=== PATIENT | female | born 1950 | race Caucasian/White ===

== ENCOUNTER → 2016-11-24 | Outpatient (CLI) | payer MEDICARE, BC ==
--- NOTE | 2016-11-29 12:37 | MM ---
Reason for exam: screening (asymptomatic). Last mammogram was performed 1 year and 2 months ago. History: Patient is postmenopausal and is nulliparous. Family history of breast cancer in aunt at age 70. Took estrogen for 6 years beginning at age 44. Took progesterone for 6 years beginning at age 44. Physical Findings: A clinical breast exam by your physician is recommended on an annual basis and results should be correlated with mammographic findings. MG 3D Screening Mammo W/Cad Bilateral CC and MLO view(s) were taken. Prior study comparison: September 21, 2015, bilateral MG 3d screening mammo w/cad. July 17, 2014, bilateral MG screening mammo w CAD. The breast tissue is heterogeneously dense. This may lower the sensitivity of mammography. No significant changes when compared with prior studies. ASSESSMENT: Negative, BI-RAD 1 RECOMMENDATION: Routine screening mammogram of both breasts in 1 year.
== END | disposition home or self-care (01) ==
LOC: RADMAMWWP 08:38
PROVIDERS: ATTEND Internal Medicine
DX: Z12.31 Encounter for screening mammogram for malignant neoplasm of breast (principal)
CPT/HCPCS: 77063; G0202

== ENCOUNTER 2017-12-20 07:33 | Day surgery (SDC) | payer MEDICARE, BC ==
[2017-12-13 12:42] VITALS: BMI 28.8
[~2017-12-20 07:33] MED LIST: CLINDAMYCIN 600 MG in DEXTROSE 5% IN WATER 50 ML IVPB ONE; DEXAMETHASONE SOD PHOSPHATE 10 MG/ML 1 ML VIAL IV ONE; DEXAMETHASONE SOD PHOSPHATE 4 MG/ML 1 ML VIAL IV ONE; ONDANSETRON 4 MG/2 ML VIAL IVP ONE
[2017-12-20] MEDS: OXYMETAZOLINE 0.05% NASL SPRAY 1 SPRAY BOTTLE NASAL ONE ×5 (07:45→08:05)
[2017-12-20] MEDS: LACTATED RINGERS 1,000 ML IV SCH ×2 (08:10→11:37)
[2017-12-20] MEDS ORDERED: FAMOTIDINE 20 MG/2 ML VIAL IVP ONE (08:11)
[2017-12-20] MEDS ORDERED: LIDOCAINE 1% 20 ML VIAL (10MG/ML) FOR IV START INTRADERMA ONE (08:11)
[2017-12-20] MEDS ORDERED: LIDOCAINE 1%-EPI 1:100,000 20 ML VIAL SUBMUCOSAL ONE ×2 (09:09→09:44)
[2017-12-20] MEDS ORDERED: FLUORESCEIN STRIPS 1 MG STRIP MISCELLANE ONE (09:11)
[2017-12-20] MEDS ORDERED: EPINEPHrine 1 MG/ML (MDV) 30 ML VIAL TOPICAL ONE ×3 (09:11)
[2017-12-20] MEDS ORDERED: SUCCINYLCHOLINE CHLORIDE VIAL 200 MG/10 ML VIAL IV ONE (09:13)
[2017-12-20] MEDS ORDERED: LIDOCAINE 1% INJ 10MG/ML (20 ML MDV) ONE (09:13)
[2017-12-20] MEDS ORDERED: PROPOFOL 10 MG/ML 20 ML VIAL IV ONE (09:13)
[2017-12-20] MEDS ORDERED: DEXAMETHASONE SOD PHOS (MDV) 100 MG/10 ML VIAL ONE (09:13)
[2017-12-20] MEDS ORDERED: fentaNYL (PF) 50 MCG/ML 2 ML AMP ONE (09:13)
[2017-12-20] MEDS ORDERED: MIDAZOLAM 2 MG/2 ML VIAL ONE (09:13)
[2017-12-20 10:35] VITALS: TEMP 97.2
--- NOTE | 2017-12-20 10:39 | P.OP ---
Date of Procedure: 12/20/17 Preoperative Diagnosis: Chronic pansinusitis with sinonasal polyposis Left upper eyelid milia Postoperative Diagnosis: Same Procedure(s) Performed: Bilateral functional endoscopic sinus surgery with polypectomy of all sinuses Incision and drainage of a left eyelid milia Anesthesia: ARAM Surgeon: James Yang Estimated Blood Loss (ml): 20 Pathology: other (Sinonasal) Condition: stable Disposition: PACU Indications for Procedure: Patient presented to the office today with long-standing severe sinonasal symptoms of nasal obstruction anosmia, facial pain and pressure, discolored drainage etc. has failed medical therapy. She was found to have large amount of polyps intranasally and had evidence of chronic pansinusitis on computed tomography scan. The patient also has a lesion of the upper eyelid on the left fistula to have removed. All risks, benefits, and alternative therapies were discussed. Consent was obtained and all questions were answered. Operative Findings: Patient had massive sinonasal polyposis throughout all sinuses with purulence seen. A small left upper eyelid milia was also noted Description of Procedure: This patient was taken to the operative room and placed in the supine position. A general inhalation anesthetic was administered to the patient by the department of anesthesia with a functioning IV line in place. The patient was monitored throughout the entire case by the department of anesthesia. The eyes were taped shut for protection. The patient was placed in a slight reverse Trendelenburg position. The patient had previously utilize Afrin nasal spray preoperatively. The nose was evaluated and the septum lateral nasal wall and inferior turbinates were injected with lidocaine 1% with epinephrine 1 100,000 bilaterally. Approximately 10 minutes were allowed wait for full vasoconstrictive effects to take place. We then entered the nose with a 0 and 30 Chambers moshe endoscope. Previous to this we did inject the lateral nasal wall and middle turbinate and uncinate process with lidocaine 1% with epinephrine 1 100,000. Approximately 10 minutes were allowed wait for full vasoconstrictive effects to take place. Intranasal polyps were noted. They were noted bilaterally. The intranasal polyps were removed with use of a microdebrider. With use of a microdebrider and a pediatric backbiter, we took down the uncinate process bilaterally. We then opened the maxillary sinuses bilaterally. We utilized a microdebrider for this and entered the maxillary sinuses and removed diseased tissue and polypoid tissue. This was done bilaterally. After the maxillary sinuses were opened and the diseased tissue and polyps were removed we entered the ethmoid bulla and with use of a microdebrider and up-biting boss and Blaconnieley, we remove the anterior septations and remove diseased tissue from the anterior ethmoids with direct visualization. We then followed the fovea frontalis through the basal lamella and into the posterior ethmoid air cells and did a total ethmoidectomy with removal of polypoid material. Once the ethmoids cells were all taken down we then entered the sphenoid sinus medially and inferiorly underneath the inferior attachment of the superior turbinate. The sphenoid sinus was opened entered and diseased tissue and polyps were removed bilaterally. This was done with a microdebrider and Blakesley. We then entered the frontal sinuses with a giraffe and up-biting Blaconnieley entered on the agar nasi cells. We open the frontal sinuses and removed sinus tissue and polypoid tissue that was diseased. We explored the frontal sinuses bilaterally. We utilized balloon technology for assistance in opening the nasal frontal duct. To summarize all sinuses were open all sinuses were explored and we remove diseased tissue and polyps from the sphenoid maxillary and frontal sinuses. Polyps were removed from the nose. Ethmoid sinuses were opened totally. Nasal pore was inserted and minimal bleeding was encountered. We reinspected the skull base there is no signs of any orbital penetration or signs of any intracranial penetration. The sugical site was reinspected after the nasal pore was placed and no bleeding was seen. Propel was placed bilaterally along with xerogel and Sarah. The patient had a small mya-on the left upper eyelid and a 18-gauge needle was used to perform an incision and drainage and removal of the material of the left milia.
[2017-12-20] MEDS ORDERED: LABETALOL 5 MG/ML VIAL MDV IV ONE (10:52)
[2017-12-20] MEDS: HYDROmorphone 0.5 MG/0.5 ML SYRINGE IVP PRN ×2 (11:04→11:13)
[2017-12-20] MEDS ORDERED: LABETALOL 5 MG/ML VIAL MDV IVP ONE (11:16)
[2017-12-20] MEDS ORDERED: ENALAPRILAT 1.25 MG/ML 1 ML VIAL IVP ONE (12:30)
[2017-12-20] MEDS ORDERED: HYDROcodone/APAP 5-325MG 1 EACH TAB PO ONE (13:02)
[2017-12-20] MEDS ORDERED: hydrALAZINE HCL 20 MG/ML 1 ML VIAL IVP ONE (14:00)
[2017-12-20 14:05] VITALS: RESP 16
[2017-12-20 14:43] VITALS: BP 161/89; PULSE 93
== END 2017-12-20 15:15 | disposition home or self-care (01) ==
LOC: OR 07:33
PROVIDERS: ATTEND Otolaryngology
DX: J32.4 Chronic pansinusitis (principal); J33.9 Nasal polyp, unspecified; L72.0 Epidermal cyst; I10 Essential (primary) hypertension; E78.00 Pure hypercholesterolemia, unspecified; F17.210 Nicotine dependence, cigarettes, uncomplicated; R01.1 Cardiac murmur, unspecified; J45.909 Unspecified asthma, uncomplicated; Z79.2 Long term (current) use of antibiotics; Z79.891 Long term (current) use of opiate analgesic; Z79.51 Long term (current) use of inhaled steroids; Z79.899 Other long term (current) drug therapy; Z88.0 Allergy status to penicillin; Z91.09 Other allergy status, other than to drugs and biological substances
CPT/HCPCS: 88305; 31267; 31259; 31253; 67700; C2625; C1726; J0171; J2250; J0330; J0360; J1100 ×2; J2405; J2001; J3010; J2704; J1170

== ENCOUNTER → 2018-01-10 | Outpatient (CLI) | payer MEDICARE, BC | END | disposition home or self-care (01) | LOC: LABWHC1 07:01 | PROVIDERS: ATTEND Otolaryngology | DX: J30.89 Other allergic rhinitis (principal); E11.9 Type 2 diabetes mellitus without complications; I10 Essential (primary) hypertension; I97.131 Postprocedural heart failure following other surgery | CPT/HCPCS: 36415 ==

== ENCOUNTER → 2018-01-31 | Outpatient (CLI) | payer MEDICARE, BC ==
--- NOTE | 2018-01-31 08:16 | US ---
EXAMINATION TYPE: US duplex aorta DATE OF EXAM: 01/31/2018 COMPARISON: NONE CLINICAL HISTORY: I71.4 Abdominal aortic aneurysm, without rupture. Patient had [facility] Screening EXAM MEASUREMENTS: Abdominal Aorta: ap x transverse Proximal: 1.9 x 1.5 cm Mid: 1.4 x 1.5 cm Distal: 2.8 x 3.2 cm Bifurcation: right 1.5 cm trans. Left 1.7 cm trans IMPRESSION: Infrarenal abdominal aortic fusiform prominence extending to the bifurcation. This has so me iliac artery involvement. Greatest AP diameter of the distal abdominal aorta is 2.8 cm.
== END | disposition home or self-care (01) ==
LOC: RADUSWWP 07:31
PROVIDERS: ATTEND Internal Medicine
DX: I71.4 Abdominal aortic aneurysm, without rupture (principal)
CPT/HCPCS: 93979

== ENCOUNTER → 2018-02-12 | Outpatient (CLI) | payer MEDICARE, BC ==
[2018-02-12 08:10] VITALS: BP 166/92; PULSE 84; TEMP 98.3; BMI 29.0
--- NOTE | 2018-02-12 09:06 | P.HPOB ---
History of Present Illness H&P Date: 02/12/18 Chief Complaint: The patient is here for her routine gynecologic exam. This is a 67-year-old G0 with an LMP of 1996. The patient states she has noticed slight vaginal itching and soreness on the left side since earlier in the summer. She denies any postmenopausal bleeding, discharge or odor. The symptoms are near the vaginal opening. She denies inserting anything into the vagina and states it was not associated with any type of sexual activity. She is otherwise without gynecologic complaints. Review of Systems Weight has been stable over the last 3 years. She denies respiratory, cardiac and G.I. problems. She denies maltreatment or problems with falling. : she denies any significant problems with urinary leakage, but occasionally needs to get to the bathroom right away. Past Medical History Past Medical History: Atrial Fibrillation, Asthma, COPD, Hyperlipidemia, Hypertension, Skin Disorder Additional Past Medical History / Comment(s): Heart murmur. AAA. LT UPPER EYELID MILIA. RECURRENT SINUS POLYPS. ENVIRONMENTAL ALLERGIES. Osteopenia. 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 History of Any Multi-Drug Resistant Organisms: None Reported Past Surgical History: Appendectomy, Ear Surgery Additional Past Surgical History / Comment(s): Nasal polyps x 4. BMT. Salpingectomy (one), Past Anesthesia/Blood Transfusion Reactions: Postoperative Nausea & Vomiting ( PONV) Additional Past Anesthesia/Blood Transfusion Reaction / Comment(s): "FELL ILL FOR 1 WK" X1 OR. Past Psychological History: No Psychological Hx Reported Smoking Status: Current every day smoker (Less than one pack per day) Past Alcohol Use History: Daily (2-3 per day) Additional Past Alcohol Use History / Comment(s): SMOKING SINCE 1970, 1 PPD. FEW BEERS DAILY Past Drug Use History: Marijuana (Many years ago. She denies any current use.) - Past Family History Mother Family Medical History: Cancer (Widespread with uncertain primary.) Additional Family Medical History / Comment(s): Maternal aunts x2 had breast cancer Father Family Medical History: Myocardial Infarction (ME) Medications and Allergies Home Medications Medication Instructions Recorded Confirmed Type Atorvastatin [Lipitor] 20 mg PO HS 06/30/14 02/12/18 History Benazepril [Lotensin] 20 mg PO DAILY 06/30/14 02/12/18 History Fluticasone/Salmeterol [Advair 1 inhalation PO BID 06/30/14 02/12/18 History 100-50 Diskus] Apixaban [Eliquis] 5 mg PO BID 12/13/17 02/12/18 History Calcium Carbonate/Vitamin D3 1 each PO DAILY 12/13/17 02/12/18 History [Calcium 600-Vit D3 400 Tablet] Cetirizine HCl [Zyrtec] 10 mg PO DAILY 12/13/17 02/12/18 History Cholecalciferol (Vitamin D3) 2,000 unit PO DAILY 12/13/17 02/12/18 History [Vitamin D3] Fish Oil/Dha/Epa [Fish Oil 1,200 1 each PO DAILY 12/13/17 02/12/18 History mg Fish Oil] Fluticasone Propionate 1 spray EA NOSTRIL DAILY 12/13/17 02/12/18 History Metoprolol Succinate (ER) [Toprol 25 mg PO DAILY 12/13/17 02/12/18 History Xl] Multivit-Min/FA/Lycopen/Lutein 1 each PO DAILY 12/13/17 02/12/18 History [Centrum Silver Tablet] Triamterene/Hydrochlorothiazid 1 each PO DAILY 12/13/17 02/12/18 History [Triamterene-Hctz 37.5-25 mg Tb] Levofloxacin [Levaquin] 500 mg PO DAILY #10 tab 12/20/17 02/12/18 Rx Allergies Allergy/AdvReac Type Severity Reaction Status Date / Time amoxicillin [From Augmentin] Allergy Nausea & Verified 02/12/18 08:08 Vomiting & Diarrhea clavulanic acid Allergy Nausea & Verified 02/12/18 08:08 [From Augmentin] Vomiting & Diarrhea Exam Vital Signs Temp Pulse BP 02/12/18 08:08 98.3 F 84 166/92 Intake and Output 02/11/18 02/12/18 02/12/18 22:59 06:59 14:59 Other: Weight 72.121 kg Height 5'2", weight 159 pounds, BMI 29.1. This is a well-developed well-nourished white female who is alert and oriented times 3 in no acute distress. HEENT: Within normal limits. NECK: Supple without mass or thyromegaly. CHEST AND LUNGS: Clear to auscultation. HEART: Regular rate and rhythm. BREASTS: Are without mass or discharge. AXILLARY EXAM: Negative for adenopathy. BACK: Negative for CVA tenderness. ABDOMEN: Soft, nontender, without palpable masses. PELVIC EXAM: Normal external genitalia with mild atrophy. Cervix appears normal. The vaginal mucosa shows mild atrophy and a raised lesion just inside of the introitus measuring 2 x 2.5 cm. The mucosa of the lesion is a slightly darker pink compared to the inner mucosa. There are no ulcerations within the lesion. There is minimal leukoplakia noted near the medial aspect of the lesion. The border is slightly irregular. There is no unusual discharge. There is no evidence of prolapse. The uterus is midposition, nongravid size and nontender. There are no palpable adnexal masses or tenderness. RECTAL EXAM: rectovaginal exam is negative for mass or tenderness and is negative for occult blood. EXTREMITIES: Nontender. IMPRESSION: 1. 67-year-old menopausal female with a left vaginal lesion just inside of the introitus measuring approximately 2 x 2.5 cm. This lesion somewhat suspicious. 2. History of osteopenia status post greater than 5 years use of Fosamax. This was discontinued approximately in 2009. PLAN: 1. Pap smear was performed. 2. Self breast awareness was discussed with the patient. 3. Screening mammogram is scheduled on 02/19/2018 per the patient. 4. The patient has been scheduled for a biopsy of the vaginal lesion. I have stressed the importance of doing the biopsy. 5. Osteoporosis prevention was discussed. She is scheduled for bone density screening on 02/19/2018. 6. I have recommended screening colonoscopy which she is refusing. She is interested in doing Cologuard screening. We have discussed how this is not a replacement for colonoscopy testing and that colonoscopy may be recommended if the cologuard testing is abnormal. If it is negative, it should be done every 3 years. A prescription was given to the patient for this. 7. We have discussed her blood pressure elevation. She will check home blood pressures on a regular basis and follow-up with Dr. Maynard for blood pressure elevations. 7. She will return in one year and PRN.
== END ==
LOC: WWCWWP 07:45
PROVIDERS: ATTEND Obstetrics & Gynecology
DX: Z53.9 Procedure and treatment not carried out, unspecified reason (principal)

== ENCOUNTER → 2018-02-19 | Outpatient (CLI) | payer MEDICARE, BC ==
--- NOTE | 2018-02-19 12:48 | BD ---
EXAMINATION TYPE: Axial Bone Density DATE OF EXAM: 02/19/2018 COMPARISON: NONE CLINICAL HISTORY: Postmenopausal female. Osteoporosis screening. Height: 5 FT 1 IN Weight: 156 FRAX RISK QUESTIONS: Family History (Parent hip fracture): YES Secondary Osteoporosis: Current Tobacco Use: YES RISK FACTORS HISTORY OF: Family History of Osteoporosis: YES Active: YES Postmenopausal woman: AGE 46 MEDICATIONS: Additional Medications: ADVAIR, ELEQUIS,BLOOD PRESSURE MEDS, CHOLESTEROL MEDS, H2O PILL, ALLERGY MED S, Additional History: EXAM MEASUREMENTS: Bone mineral densitometry was performed using the CSDN System. Bone mineral density as measured about the Lumbar spine is: ----- L1-L4(G/cm2): 1.060 T Score Values are as follows: ----- L2: -0.3 ----- L3: -1.5 ----- L4: -1.2 ----- L1-L4: -1.0 Bone mineral density has: INCREASED 5.5 % since study of: 2015 Bone mineral density about the R hip (g/cm2): 0.778 Bone mineral density about the L hip (g/cm2): 0.821 T Score values are as follows: -----R Neck: -1.9 -----L Neck: -1.6 -----R Total: -1.6 -----L Total: -0.6 Bone mineral density has: INCREASED 1.8 % since study of: 2015 IMPRESSION: Osteopenia (T Score between -2.5 and -1). There is slightly increased risk of fracture and the patient may be considered for treatment. Re-Screen 2-5 years. NOTE: T-SCORE=SD OF THE YOUNG ADULT MEAN.
--- NOTE | 2018-02-20 11:21 | MM ---
Reason for exam: screening (asymptomatic). Last mammogram was performed 1 year and 3 months ago. History: Patient is postmenopausal and is nulliparous. Family history of breast cancer in aunt at age 70. Took estrogen for 6 years beginning at age 44. Took progesterone for 6 years beginning at age 44. Physical Findings: A clinical breast exam by your physician is recommended on an annual basis and results should be correlated with mammographic findings. MG 3D Screening Mammo W/Cad Bilateral CC and MLO view(s) were taken. Prior study comparison: November 24, 2016, bilateral MG 3d screening mammo w/cad. September 21, 2015, bilateral MG 3d screening mammo w/cad. The breast tissue is heterogeneously dense. This may lower the sensitivity of mammography. There is chronic nodularity in the right breast. Dense tissues anteriorly on a background of scattered densities. No significant changes when compared with prior studies. ASSESSMENT: Negative, BI-RAD 1 RECOMMENDATION: Routine screening mammogram of both breasts in 1 year.
== END | disposition home or self-care (01) ==
LOC: RADMAMWWP 07:37
PROVIDERS: ATTEND Internal Medicine
DX: Z12.31 Encounter for screening mammogram for malignant neoplasm of breast (principal); M85.80 Other specified disorders of bone density and structure, unspecified site
CPT/HCPCS: 77063; 77067; 77080

== ENCOUNTER → 2018-02-27 | Day surgery (SDC) | payer MEDICARE, BC ==
--- NOTE | 2018-02-27 14:11 | P.PCN ---
Date of Procedure: 02/27/18 Preoperative Diagnosis: Suspicious vaginal mucosal lesion Postoperative Diagnosis: Same Procedure(s) Performed: Vaginal lesion biopsy x2 Anesthesia: local Surgeon: Karthik Murrieta Estimated Blood Loss (ml): 2 Pathology: other (2 vaginal lesion biopsies) Condition: stable Disposition: same day Indications for Procedure: This was a 67-year-old female who noticed some vaginal irritation and soreness just inside of the introitus for the past several months. She noticed that it was on the left side. A suspicious vaginal lesion was noted on her exam and she was scheduled for a biopsy. Operative Findings: There is in a regular vaginal mucosal lesion to the left side of the vagina near the introitus. The lesion is at the posterior aspect of the vaginal opening. The mucosa is raised and slightly darker pink than the surrounding mucosa. The lesion measures approximately 2.5 x 2.0 cm. There is a small amount of leukoplakia at the medial peripheral aspect of the lesion. Description of Procedure: The procedure was described to the patient. We also discussed possible risks and complications including infection and bleeding. The patient's questions were answered. The patient was placed in the lithotomy position. The lesion was visible by spreading the labia apart. Betadine solution was used to prep the lesion. 2 mL of 1% lidocaine was used for local anesthesia. Following determination of adequate anesthesia, a 4 mm punch biopsy instrument was used to obtain a specimen from the central part of the lesion. A 2nd biopsy was obtained with a cervical biopsy instrument in the area of the small leukoplakia at the medial aspect of the lesion. A silver nitrate stick was used on each of the biopsy sites to obtain hemostasis. Gauze was placed between the labia and the patient was given a pad to wear. the patient was instructed to change the gauze later today as needed. The patient was instructed to call she is having unusual pain , heavier bleeding, fever or problems. The patient tolerated the procedure well. The estimated blood loss for the procedure was 2 cc. There were no complications. To biopsy specimens were sent for pathological examination Preprocedure vital signs: blood pressure 152/72, pulse 100, temperature 98.0. Postprocedure vital signs: blood pressure 145/85, pulse 104.
== END ==
LOC: WWCWWP 02-20 11:52
PROVIDERS: ATTEND Obstetrics & Gynecology
DX: D07.2 Carcinoma in situ of vagina (principal)
CPT/HCPCS: 88305; 88342

== ENCOUNTER → 2018-02-28 | Outpatient (CLI) | payer MEDICARE, BC ==
[2018-02-28 11:51] VITALS: BP 160/70; PULSE 87; RESP 18; TEMP 96.6; BMI 29.8
--- NOTE | 2018-02-28 13:02 | P.PN ---
Progress Note - Text Progress Note Date: 02/28/18 The patient is status post vaginal biopsy x2 done yesterday for a suspicious vaginal lesion. The patient states she took ibuprofen yesterday when she meant to take Tylenol. About 3 hours later, she noticed some bleeding from the biopsy site. She called this morning because she continued to have bleeding. She did have some clots also noted. She was asked to be seen in the office. Physical exam: blood pressure 160/70, height 5'1", weight 160 pounds, long-term 96.4 part, pulse 87. This is a well-developed well-nourished white female who is alert and oriented times 3 in no acute distress. The patient was placed in the lithotomy position. There was blood in the genital region. Upon inspection of the biopsy sites, the more lateral biopsy site was bleeding from the lateral aspect of the site. This was a continuous bleed. Pressure was applied for 2 minutes and she continued to have a slow continuous bleed. The decision was made to place a stitch for hemostasis. The area was prepped with Betadine. 1.5 mL of 1% lidocaine was used for local anesthesia. Following determination of adequate anesthesia, a 3-0 vicryl suture was used to place a single figure of 8 stitch for hemostasis. Hemostasis was obtained. Suture ends were left at 2cm. The estimated blood loss was to 2 ml. The patient tolerated the procedure well. The patient was instructed to have very limited activity for the next 2 days and no strenuous or sexual activity until she is seen again. We have made an appointment for her to be seen on 03/12/2018. She was instructed to call she is having bleeding, fever, unusual pain, lightheadedness, or problems. 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 This finding was discussed with the patient. We discussed how further treatment is necessary. We also discussed how possible adjuvant therapy may be necessary if excision of the lesion revealed invasive cancer. I will consult with a gynecologic oncologist to determine the best approach for treatment. Post suture blood pressure was 152/69 and pulse was 86. The patient left in stable condition. I will call her with future plans for treatment of the carcinoma in situ. Total time spent with the patient 35 minutes.
--- NOTE | 2018-03-05 07:58 | P.PN ---
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 I have consulted by phone with 2 [employer] oncologists, Dr. Esdras Haney and Dr. Carole Amezcua. Both feel that wide local excision of the vaginal lesion is acceptable since the lesion is accessible and well demarcated. The goal will be to exercise the lesion with negative margins. I have discussed this with Dr. Martel who has agreed to see the patient for possible local excision of the lesion. She will be referred to Dr. Martel for this.
== END | disposition home or self-care (01) ==
LOC: WWCWWP 11:32
PROVIDERS: ATTEND Obstetrics & Gynecology
DX: Z53.9 Procedure and treatment not carried out, unspecified reason (principal)

== ENCOUNTER → 2018-03-07 | Outpatient (CLI) | payer MEDICARE, BC ==
[2018-03-07 15:36] LABS: Basophils # (A) 0.1 k/uL (0-0.2); Basophils % (A) 1 %; Eosinophils # (A) 0.1 k/uL (0-0.7); Eosinophils % (A) 1 %; HCT 37.6 % (34.0-46.0); HGB 12.3 gm/dL (11.4-16.0); Lymphocytes # (A) 2.3 k/uL (1.0-4.8); Lymphocytes % (A) 23 %; MCH 32.8 pg (25.0-35.0); MCHC 32.7 g/dL (31.0-37.0); MCV 100.2 fL (80.0-100.0); Mean Platelet Volume 6.4; Monocytes # (A) 0.6 k/uL (0-1.0); Monocytes % (A) 6 %; Neutrophils # (A) 6.8 k/uL (1.3-7.7); Neutrophils % (A) 68 %; Platelet Count 337 k/uL (150-450); RBC 3.75 m/uL (3.80-5.40); RDW 13.4 % (11.5-15.5)
== END ==
LOC: LABPAT 14:54
PROVIDERS: ATTEND Obstetrics & Gynecology
DX: Z01.812 Encounter for preprocedural laboratory examination (principal); N90.89 Other specified noninflammatory disorders of vulva and perineum; N89.8 Other specified noninflammatory disorders of vagina
CPT/HCPCS: 36415; 85025

== ENCOUNTER 2018-03-19 06:48 | Day surgery (SDC) | payer MEDICARE, BC ==
[2018-03-14 15:25] VITALS: BMI 30.2
[~2018-03-19 06:48] MED LIST changes: -CLINDAMYCIN 600 MG in DEXTROSE 5% IN WATER 50 ML IVPB ONE; -DEXAMETHASONE SOD PHOSPHATE 4 MG/ML 1 ML VIAL IV ONE; +HYDROmorphone 0.5 MG/0.5 ML SYRINGE IVP PRN; +LACTATED RINGERS 1,000 ML IV SCH; +LIDOCAINE 1% 20 ML VIAL (10MG/ML) FOR IV START INTRADERMA PRN; +MIDAZOLAM 2 MG/2 ML VIAL IV PRN; +Pre Op ABX Message 1 EACH MISC MISCELLANE ONE; +SCOPOLAMINE 1.5MG/72HR PATCH TRANSDERM ONE
[2018-03-19 07:44] LABS: Glucose,Whole Blood 128 mg/dL (75-99)
[2018-03-19] MEDS ORDERED: PROPOFOL 10 MG/ML 20 ML VIAL IV ONE (09:09)
[2018-03-19] MEDS ORDERED: MIDAZOLAM 2 MG/2 ML VIAL ONE (09:09)
[2018-03-19] MEDS ORDERED: fentaNYL (PF) 50 MCG/ML 2 ML AMP ONE (09:09)
[2018-03-19] MEDS ORDERED: LIDOCAINE 1% INJ 10MG/ML (20 ML MDV) ONE (09:09)
[2018-03-19] MEDS ORDERED: METOCLOPRAMIDE 5 MG/ML 2 ML VIAL IVP PRN (09:15)
[2018-03-19] MEDS ORDERED: Acetaminophen-Codeine 300-30mg TAB PO PRN ×2 (09:15)
[2018-03-19] MEDS ORDERED: LACTATED RINGERS 1,000 ML IV SCH (09:15)
[2018-03-19] MEDS ORDERED: ONDANSETRON 4 MG/2 ML VIAL IVP PRN (09:15)
[2018-03-19] MEDS ORDERED: SIMETHICONE 80 MG CHEWABLE PO PRN (09:15)
[2018-03-19] MEDS ORDERED: diphenhydrAMINE 25 MG CAP PO PRN (09:15)
[2018-03-19] MEDS ORDERED: IBUPROFEN 600 MG TAB PO PRN (09:15)
[2018-03-19] MEDS ORDERED: BUPIVACAINE (PF) 0.25% 30 ML VIAL SQ ONE ×2 (09:31)
--- NOTE | 2018-03-19 09:51 | P.OP ---
Date of Procedure: 03/19/18 Preoperative Diagnosis: #1. Vulvar carcinoma in situ Postoperative Diagnosis: Same Procedure(s) Performed: #1. Wide local excision of vulvar lesion Anesthesia: spinal Surgeon: Jared Martel Sales Account Specialist #1: Jeanie Weiss Estimated Blood Loss (ml): 10 IV fluids (ml): 400 Urine output (ml): 0 Pathology: other (Left vulvar perineal ellipse) Condition: stable Disposition: PACU Operative Findings: Preoperatively and intraoperatively, the patient was noted to have a well- circumscribed lesion just outside of the hymeneal ring on the left vulva near the perineal body which was excised entirely and sent to pathology for examination. No other lesions were noted. Description of Procedure: The patient was prepped and draped in usual fashion after spinal anesthesia was administered by the anesthesiologist. The lesion was identified and grasped from side to side with an Allis clamp. The margins of the ellipse were marked with a surgical marker. A scalpel was utilized to circumscribe the margins and remove the lesion to the underlying fascia. The base of the ellipse was cauterized for any significant ongoing bleeding. Once bleeding was adequate, the subcutaneous tissues were closed with a running locking stitch of 2-0 Vicryl from top to bottom. Any further bleeders near the skin edges were made hemostatic with the Bovie. The skin was reapproximated with a running subcuticular stitch of 4-0 Vicryl from superior to inferior margin. The entire ellipse was perhaps 4-5 cm in length by approximately 3 cm in width. Hemostasis appeared to be excellent. Bacitracin ointment was applied to the repair. Estimated blood loss for the case was 10 mL or less. There were no complications. All sponge, instrument, and needle counts were correct. The patient tolerated the procedure well and proceeded to the recovery room in stable condition.
[2018-03-19 09:57] VITALS: TEMP 97.4
[2018-03-19 10:51] VITALS: RESP 18
[2018-03-19 11:29] VITALS: BP 132/76; PULSE 103
== END 2018-03-19 11:58 | disposition home or self-care (01) ==
LOC: OR 06:48
PROVIDERS: ATTEND Obstetrics & Gynecology
DX: D07.1 Carcinoma in situ of vulva (principal); I10 Essential (primary) hypertension; E78.5 Hyperlipidemia, unspecified; J45.909 Unspecified asthma, uncomplicated; F17.210 Nicotine dependence, cigarettes, uncomplicated; Z80.3 Family history of malignant neoplasm of breast; R59.9 Enlarged lymph nodes, unspecified; M79.10 Myalgia, unspecified site; I48.1 Persistent atrial fibrillation; I35.0 Nonrheumatic aortic (valve) stenosis; I71.4 Abdominal aortic aneurysm, without rupture; J43.9 Emphysema, unspecified; R01.1 Cardiac murmur, unspecified; M85.80 Other specified disorders of bone density and structure, unspecified site; Z88.0 Allergy status to penicillin; Z79.01 Long term (current) use of anticoagulants; Z79.51 Long term (current) use of inhaled steroids; Z79.899 Other long term (current) drug therapy
CPT/HCPCS: 88305; 11626; J2250; J1100; J2405; J2001; J3010; J2704

== ENCOUNTER 2018-04-24 10:22 | Emergency (ER) | payer MEDICARE, BC ==
[2018-04-24] MEDS ORDERED: IPRATROPIUM-ALBUTEROL 3 ML NEB INHALATION STA (10:41)
[2018-04-24] MEDS ORDERED: SODIUM CHLORIDE 0.9% 1,000 ML IV STA ×2 (10:41→11:01)
--- NOTE | 2018-04-24 11:01 | ED ---
General Adult HPI - General Chief complaint: Recheck/Abnormal Lab/Rx Stated complaint: low bp Time Seen by Provider: 04/24/18 10:33 Source: patient, RN notes reviewed Mode of arrival: wheelchair Limitations: no limitations - History of Present Illness Initial comments: Is a 67-year-old female who was sent over from her doctor's office with complaints of just not feeling well. She states for the past 5 days she just is felt like crap she's had some nausea decreased oral intake she's had a nonproductive cough she thought because of a recent diagnosis of A. fib this was her reason for this. She denies any overt fevers chills or sweats. No overt dizziness or lightheadedness. No focal deficits. No dysuria hematuria. No rhinorrhea she states because of cough over has had a sore throat she does state that she normally is hypertensive she states her blood pressure is been lower. - Related Data Home Medications Medication Instructions Recorded Confirmed Atorvastatin [Lipitor] 20 mg PO HS 06/30/14 04/24/18 Benazepril [Lotensin] 20 mg PO DAILY 06/30/14 04/24/18 Fluticasone/Salmeterol [Advair 1 puff INHALATION RT-BID 06/30/14 04/24/18 100-50 Diskus] Apixaban [Eliquis] 5 mg PO BID 12/13/17 04/24/18 Cholecalciferol (Vitamin D3) 2,000 unit PO DAILY 12/13/17 04/24/18 [Vitamin D3] Fexofenadine HCl [Latonya Allergy] 180 mg PO DAILY 04/24/18 04/24/18 Metoprolol Succinate (ER) [Toprol 50 mg PO DAILY 04/24/18 04/24/18 Xl] Triamcinolone Acetonide [Nasacort] 1 spray EA NOSTRIL DAILY 04/24/18 04/24/18 Triamterene-Hctz 37.5-25Mg 1 cap PO DAILY 04/24/18 04/24/18 [Dyazide 37.5-25 Capsule] Allergies Allergy/AdvReac Type Severity Reaction Status Date / Time amoxicillin [From Augmentin] Allergy Nausea & Verified 04/24/18 10:43 Vomiting & Diarrhea clavulanic acid Allergy Nausea & Verified 04/24/18 10:43 [From Augmentin] Vomiting & Diarrhea Review of Systems ROS Statement: Those systems with pertinent positive or pertinent negative responses have been documented in the HPI. ROS Other: All systems not noted in ROS Statement are negative. Past Medical History Past Medical History: Atrial Fibrillation, Asthma, COPD, Hyperlipidemia, Hypertension Additional Past Medical History / Comment(s): Heart murmur. AAA. RECURRENT SINUS POLYPS. ENVIRONMENTAL ALLERGIES. History of Any Multi-Drug Resistant Organisms: None Reported Past Surgical History: Appendectomy, Ear Surgery Additional Past Surgical History / Comment(s): Nasal polyps x 3. BMT. Salpingectomy (one), Past Anesthesia/Blood Transfusion Reactions: Postoperative Nausea & Vomiting ( PONV) Additional Past Anesthesia/Blood Transfusion Reaction / Comment(s): "FELL ILL FOR 1 WK" X1 OR. Past Psychological History: No Psychological Hx Reported Smoking Status: Current every day smoker Past Alcohol Use History: None Reported Past Drug Use History: None Reported - Past Family History Father Family Medical History: Myocardial Infarction ([place]) Mother Family Medical History: Cancer Additional Family Medical History / Comment(s): Maternal aunts x2 had breast cancer General Exam - General Exam Comments Initial Comments: Is a well-developed well-nourished awake alert oriented 3 female Limitations: no limitations General appearance: alert, in no apparent distress Head exam: Present: atraumatic, normocephalic, normal inspection Eye exam: Present: normal appearance, PERRL, EOMI. Absent: scleral icterus, conjunctival injection, periorbital swelling ENT exam: Present: mucous membranes dry, normal external ear exam Neck exam: Present: normal inspection, full ROM. Absent: tenderness, meningismus, lymphadenopathy Respiratory exam: Present: wheezes, decreased breath sounds. Absent: respiratory distress, rales, rhonchi, stridor Cardiovascular Exam: Present: tachycardia, irregular rhythm. Absent: systolic murmur, diastolic murmur, rubs, gallop, clicks GI/Abdominal exam: Present: soft, normal bowel sounds. Absent: distended, tenderness, guarding, rebound, rigid Extremities exam: Present: normal inspection, full ROM, normal capillary refill. Absent: tenderness, pedal edema, joint swelling, calf tenderness Back exam: Present: normal inspection Neurological exam: Present: alert, oriented X3, CN II-XII intact Psychiatric exam: Present: normal affect, normal mood Skin exam: Present: warm, dry, intact, normal color. Absent: rash Course Vital Signs 04/24/18 04/24/18 04/24/18 10:23 11:57 12:07 Temperature 98.7 F Pulse Rate 103 H 100 88 Respiratory 16 Rate Blood Pressure 89/57 O2 Sat by Pulse 95 Oximetry EKG Findings - EKG Results: EKG: interpreted by ALINE (Atrial flutter rate was 88 QRS 102 QT since QTC 362/ 438 no acute changes noted) Medical Decision Making - Medical Decision Making I did reevaluate patient several occasions she still improved with respect to her breathing additionally she did definite evidence of dehydration and renal insufficiency she did receive IV fluids her blood pressure is improved. Thus the case with Dr. Maynard patient be discharged with modification of her medications she will be stopping her Dyazide and decreasing her RIVERA inhibitor to 10 mg a from 20 mg a day. She is also follow-up with Dr. Maynard next 1-2 days. Some increase her oral fluids. - Lab Data Result diagrams: 04/24/18 10:53 04/24/18 10:53 Lab Results 04/24/18 04/24/18 04/24/18 Range/Units 10:53 10:53 10:53 WBC 6.3 (3.8-10.6) k/uL RBC 4.41 (3.80-5.40) m/uL Hgb 13.8 (11.4-16.0) gm/dL Hct 42.0 (34.0-46.0) % MCV 95.3 (80.0-100.0) fL MCH 31.4 (25.0-35.0) pg MCHC 32.9 (31.0-37.0) g/dL RDW 13.3 (11.5-15.5) % Plt Count 221 (150-450) k/uL Neutrophils % 71 % Lymphocytes % 18 % Monocytes % 5 % Eosinophils % 1 % Basophils % 1 % Neutrophils # 4.4 (1.3-7.7) k/uL Lymphocytes # 1.1 (1.0-4.8) k/uL Monocytes # 0.3 (0-1.0) k/uL Eosinophils # 0.1 (0-0.7) k/uL Basophils # 0.1 (0-0.2) k/uL PT (9.0-12.0) sec INR (<1.2) APTT (22.0-30.0) sec Sodium 135 L (137-145) mmol/L Potassium 3.3 L (3.5-5.1) mmol/L Chloride 97 L (98-107) mmol/L Carbon Dioxide 25 (22-30) mmol/L Anion Gap 13 mmol/L BUN 28 H (7-17) mg/dL Creatinine 1.55 H (0.52-1.04) mg/dL Est GFR (CKD-EPI)AfAm 40 (>60 ml/min/1.73 sqM) Est GFR (CKD-EPI)NonAf 34 (>60 ml/min/1.73 sqM) Glucose 136 H (74-99) mg/dL Calcium 8.8 (8.4-10.2) mg/dL Magnesium 2.1 (1.6-2.3) mg/dL Total Bilirubin 0.6 (0.2-1.3) mg/dL AST 44 H (14-36) U/L ALT 43 (9-52) U/L Alkaline Phosphatase 69 (38-126) U/L Total Creatine Kinase 96 (30-135) U/L CK-MB (CK-2) 0.8 (0.0-2.4) ng/mL CK-MB (CK-2) Rel Index 0.8 Troponin I 0.013 (0.000-0.034) ng/mL NT-Pro-B Natriuret Pep pg/mL Total Protein 7.1 (6.3-8.2) g/dL Albumin 4.1 (3.5-5.0) g/dL 04/24/18 04/24/18 Range/Units 10:53 10:53 WBC (3.8-10.6) k/uL RBC (3.80-5.40) m/uL Hgb (11.4-16.0) gm/dL Hct (34.0-46.0) % MCV (80.0-100.0) fL MCH (25.0-35.0) pg MCHC (31.0-37.0) g/dL RDW (11.5-15.5) % Plt Count (150-450) k/uL Neutrophils % % Lymphocytes % % Monocytes % % Eosinophils % % Basophils % % Neutrophils # (1.3-7.7) k/uL Lymphocytes # (1.0-4.8) k/uL Monocytes # (0-1.0) k/uL Eosinophils # (0-0.7) k/uL Basophils # (0-0.2) k/uL PT 10.5 (9.0-12.0) sec INR 1.0 (<1.2) APTT 28.3 (22.0-30.0) sec Sodium (137-145) mmol/L Potassium (3.5-5.1) mmol/L Chloride (98-107) mmol/L Carbon Dioxide (22-30) mmol/L Anion Gap mmol/L BUN (7-17) mg/dL Creatinine (0.52-1.04) mg/dL Est GFR (CKD-EPI)AfAm (>60 ml/min/1.73 sqM) Est GFR (CKD-EPI)NonAf (>60 ml/min/1.73 sqM) Glucose (74-99) mg/dL Calcium (8.4-10.2) mg/dL Magnesium (1.6-2.3) mg/dL Total Bilirubin (0.2-1.3) mg/dL AST (14-36) U/L ALT (9-52) U/L Alkaline Phosphatase (38-126) U/L Total Creatine Kinase (30-135) U/L CK-MB (CK-2) (0.0-2.4) ng/mL CK-MB (CK-2) Rel Index Troponin I (0.000-0.034) ng/mL NT-Pro-B Natriuret Pep 474 pg/mL Total Protein (6.3-8.2) g/dL Albumin (3.5-5.0) g/dL - Radiology Data Radiology results: report reviewed (I did review the imaging and report no acute findings.), image reviewed Disposition Clinical Impression: Hypotensive episode, Acute bronchospasm, Dehydration, Renal insufficiency, Chronic atrial flutter Disposition: HOME SELF-CARE Condition: Good Instructions: Dehydration (ED), Hypotension (ED) Additional Instructions: Decrease the benzopril to 10 mg a day and stop the Dyazide. Is patient prescribed a controlled substance at d/c from ED?: No Referrals: Abdiel Maynard MD [Primary Care Provider] - 1-2 days
[2018-04-24 11:17] LABS: Basophils # (A) 0.1 k/uL (0-0.2); Basophils % (A) 1 %; Eosinophils # (A) 0.1 k/uL (0-0.7); Eosinophils % (A) 1 %; HGB 13.8 gm/dL (11.4-16.0); Lymphocytes # (A) 1.1 k/uL (1.0-4.8); Lymphocytes % (A) 18 %; MCH 31.4 pg (25.0-35.0); MCHC 32.9 g/dL (31.0-37.0); MCV 95.3 fL (80.0-100.0); Mean Platelet Volume 6.8; Monocytes # (A) 0.3 k/uL (0-1.0); Monocytes % (A) 5 %; Neutrophils # (A) 4.4 k/uL (1.3-7.7); Neutrophils % (A) 71 %; Platelet Count 221 k/uL (150-450); RBC 4.41 m/uL (3.80-5.40); RDW 13.3 % (11.5-15.5); WBC 6.3 k/uL (3.8-10.6)
[2018-04-24 11:23] LABS: Partial Thromboplastin Time 28.3 sec (22.0-30.0); Prothrombin Time 10.5 sec (9.0-12.0)
[2018-04-24 11:25] LABS: Albumin 4.1 g/dL (3.5-5.0); Calcium 8.8 mg/dL (8.4-10.2); Magnesium 2.1 mg/dL (1.6-2.3); Potassium 3.3 mmol/L (3.5-5.1); Total Bilirubin 0.6 mg/dL (0.2-1.3); Total Protein 7.1 g/dL (6.3-8.2)
[2018-04-24 11:48] LABS: Creatine Kinase MB 0.8 ng/mL (0.0-2.4); Troponin I 0.013 ng/mL (0.000-0.034)
--- NOTE | 2018-04-24 11:59 | XR ---
EXAMINATION TYPE: XR chest 2V DATE OF EXAM: 04/24/2018 COMPARISON: 06/22/2014 HISTORY: Shortness of breath TECHNIQUE: Frontal and lateral views of the chest are obtained. FINDINGS: Scattered senescent parenchymal changes noted. Hyperinflation compatible with COPD. No evidence for infiltrate. No evidence for atelectasis. Heart size is stable. Mediastinal structures are stable and grossly unremarkable. No evidence for hilar prominence. Degenerative changes dorsal spine. IMPRESSION: 1. No evidence for acute pulmonary disease.
[2018-04-24 13:12] VITALS: BP 119/77; PULSE 98; RESP 18; TEMP 97.4
== END 2018-04-24 13:12 | disposition home or self-care (01) ==
LOC: EC 10:22
DX: I48.92 Unspecified atrial flutter (principal); I95.9 Hypotension, unspecified; J44.9 Chronic obstructive pulmonary disease, unspecified; E86.0 Dehydration; N28.9 Disorder of kidney and ureter, unspecified; R11.0 Nausea; I48.91 Unspecified atrial fibrillation; E78.5 Hyperlipidemia, unspecified; I10 Essential (primary) hypertension; F17.200 Nicotine dependence, unspecified, uncomplicated; Z79.01 Long term (current) use of anticoagulants; Z79.51 Long term (current) use of inhaled steroids; Z79.899 Other long term (current) drug therapy; Z88.0 Allergy status to penicillin; Z82.49 Family history of ischemic heart disease and other diseases of the circulatory system
CPT/HCPCS: 36415; 71046; 80053; 82550; 82553; 83735; 83880; 84484; 85025; 85610; 85730; 87040; 93005; 94640; 96360; 96361; 99285

== ENCOUNTER → 2018-05-01 | Outpatient (CLI) | payer MEDICARE, BC ==
--- NOTE | 2018-05-01 13:35 | ECHOF ---
Referral Reason:I48.91 Atrial Fibrillation MEASUREMENTS -------- HEIGHT: 154.9 cm WEIGHT: 65.8 kg BP: RVIDd: 2.9 cm (< 3.3) IVSd: 1.2 cm (0.6 - 1.1) LVIDd: 3.9 cm (3.9 - 5.3) LVPWd: 1.1 cm (0.6 - 1.1) IVSs: 1.2 cm LVIDs: 2.1 cm LVPWs: 1.3 cm LAESV Index (A-L): 33.43 ml/m Ao Diam: 2.3 cm (2.0 - 3.7) AV Cusp: 1.3 cm (1.5 - 2.6) LA Diam: 3.5 cm (2.7 - 3.8) EPSS: 0.9 cm AV maxP.88 mmHg AV meanP.97 mmHg RAP: 5.00 mmHg RVSP: 16.72 mmHg MV EF SLOPE: 75.55 mm/s (70 - 150) MV EXCURSION: 1.08 cm (> 18.000) FINDINGS -------- Sinus rhythm. This was a technically adequate study. The left ventricular size is normal. There is mild concentric left ventricular hypertrophy. Overa ll left ventricular systolic function is normal with, an EF between 55 - 60 %. The right ventricle is normal in size and function. LA is midly dilated 29-33ml/m2. RA appears enlarged. There is mild aortic valve sclerosis. There is no evidence of aortic regurgitation. There is no e vidence of aortic stenosis. Mild mitral annular calcification present. Mild mitral regurgitation is present. Trace tricuspid regurgitation present. Right ventricular systolic pressure is normal at < 35 mmHg. There is no evidence of pulmonary hypertension. Trace/mild (physiologic) pulmonic regurgitation. The aortic root size is normal. Normal inferior vena cava with normal inspiratory collapse consistent with estimated right atrial pre ssure of 5 mmHg. There is no pericardial effusion. CONCLUSIONS -------- 1. Sinus rhythm. 2. This was a technically adequate study. 3. The left ventricular size is normal. 4. There is mild concentric left ventricular hypertrophy. 5. Overall left ventricular systolic function is normal with, an EF between 55 - 60 %. 6. LA is midly dilated 29-33ml/m2. 7. RA appears enlarged. 8. There is mild aortic valve sclerosis. 9. Mild mitral annular calcification present. 10. Mild mitral regurgitation is present. 11. Trace tricuspid regurgitation present. 12. Right ventricular systolic pressure is normal at < 35 mmHg. 13. There is no evidence of pulmonary hypertension. 14. Trace/mild (physiologic) pulmonic regurgitation. 15. The aortic root size is normal. 16. There is no pericardial effusion. INSIGHTS STRATEGIST: Issa Coreas RDCS
== END | disposition home or self-care (01) ==
LOC: RADECHMAIN 08:32
PROVIDERS: ATTEND Internal Medicine
DX: I51.7 Cardiomegaly (principal); I35.8 Other nonrheumatic aortic valve disorders; I34.0 Nonrheumatic mitral (valve) insufficiency; I48.91 Unspecified atrial fibrillation
CPT/HCPCS: 93306

== ENCOUNTER → 2018-11-21 | Outpatient (CLI) | payer MEDICARE, BC ==
--- NOTE | 2018-11-21 23:31 | CONS ---
CONSULTATION DATE OF SERVICE: 11/21/2018 68-year-old lady who has been evaluated in the sleep center for possible obstructive sleep apnea-hypopnea syndrome. HISTORY OF PRESENT ILLNESS/SLEEP WAKE EVALUATION: Patient usually goes to bed around 9 p.m. and gets up in the morning around 5 or 6 a.m. Usually no problems with falling asleep, although she has TV set in bedroom. She usually sleeps on the side, prefers not to sleep on the back position. She snores loudly and wakes up from sleep 3 times with nocturia. No history of hypnagogic hallucinations, sleep paralysis or cataplexy. During the day, patient may feel sleepy, may take 1 nap, usually afternoon time. [place] Sleepiness Scale significantly increased to 14. PAST MEDICAL HISTORY: Positive for recently found atrial fibrillation, hypertension, hyperlipidemia, allergy, asthma, COPD, abdominal aortic aneurysm. PAST SURGICAL HISTORY: Tubal . MEDICATIONS: Montelukast, losartan, metoprolol, Triamterene, hydrochlorothiazide, verapamil, Apixaban, atorvastatin, fluticasone, fluticasone salmeterol, Advair. SOCIAL HISTORY: Positive for smoking for about 40 pack years. Patient continued to smoke. Alcohol consumption: None. FAMILY HISTORY: Hypertension, heart problems, asthma, cancer, emphysema, lung problems, ulcers, diabetes and nasal polyps. REVIEW OF SYSTEMS: Multiple awakenings from sleep, sleepiness during the day. PHYSICAL EXAM: lady without distress. BP 188/101 in the right arm and 168/73 on the left side, HR 78, RR 16, height 5 feet 1 inch, weight 167 pounds. Body mass index 31.3, temperature 98.7, oxygen saturation at room air 96%. Oropharynx: Extremely low position of soft palate. Mallampati 4. Some restriction of nasal breathing on the right side. Neck Supple, no JVD. Thyroid is not palpable. LUNGS Clear to percussion and to auscultation. Good air exchange. No wheezing or rhonchi. HEART S1, S2 irregularly irregular. No murmurs, gallops, or rubs. ABDOMEN: Slightly obese. Soft and nontender. Bowel sounds are present. No organomegaly appreciated. EXTREMITIES No clubbing or cyanosis. 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 Cranial nerves 2 to 7 intact. There is no fasciculation or atrophy. noted. No focal deficits observed. IMPRESSION: 1. Loud snoring, multiple awakenings from sleep with nocturia extremely low position of soft palate, sleepiness. [place] Sleepiness Scale increased to 14 obstructive sleep apnea-hypopnea syndrome. 2. Atrial fibrillation. 3. Hypertension. 4. Obesity. 5. Hyperlipidemia. 6. Allergy. 7. History of asthma and chronic obstructive pulmonary disease. 8. History of abdominal aortic aneurysm. PLAN: 1. Polysomnography for evaluation of patient's breathing during sleep. 2. CPAP/BiPAP titration if sleep study confirms obstructive sleep apnea-hypopnea syndrome. 3. Preferable position during sleep on the side. 4. No driving if patient feels any sleepiness. 5. I will see patient for follow up visit to explain results of testing and following plan. Thank you very much for referring this patient for consultation. Sincerely, Ryan Rosales MD, PhD, FAASM Diplomat of [place] [employer] [place] [employer] Operator of [facility] [place] MMODL / IJN: [id number] /
== END ==
LOC: SLEEP 14:57
PROVIDERS: ATTEND Internal Medicine
DX: G47.33 Obstructive sleep apnea (adult) (pediatric) (principal); I48.91 Unspecified atrial fibrillation; I10 Essential (primary) hypertension; E66.9 Obesity, unspecified; E78.5 Hyperlipidemia, unspecified; Z88.9 Allergy status to unspecified drugs, medicaments and biological substances; J44.9 Chronic obstructive pulmonary disease, unspecified; F17.210 Nicotine dependence, cigarettes, uncomplicated; Z86.79 Personal history of other diseases of the circulatory system; Z79.899 Other long term (current) drug therapy
CPT/HCPCS: 99211

== ENCOUNTER → 2019-03-11 | Outpatient (CLI) | payer MEDICARE, BC ==
[2019-03-11 11:26] VITALS: BP 152/93; PULSE 69; RESP 18; TEMP 98.1; BMI 31.2
--- NOTE | 2019-03-11 12:26 | P.HPOB ---
History of Present Illness H&P Date: 03/11/19 Chief Complaint: The patient is here for her routine gynecologic exam. This is a 68-year-old G0 with an LMP of 1997. The patient was found to have a vulvar lesion at the introitus. This was biopsied by myself on 02/27/2018 and this showed SHELIA III/CIS. Dr. Martel did a wide local excision on 03/19/2018 which showed SHELIA 2-3 extending to the margin. He referred her to the gynecologic oncologist, Dr. Alexander. Dr. Alexander did laser ablation of the SHELIA in September 2018. She has been following up with Dr. Alexander for rechecks and will be due to see him in 2 months. The patient is without gynecologic complaints. Review of Systems She is getting about 12 pounds over the last year. She denies respiratory, cardiac and G.I. problems. She denies maltreatment or problems with falling. : she denies any significant problems with urinary leakage, but at times has to get to the bathroom right away. Past Medical History Past Medical History: Atrial Fibrillation, Asthma, COPD, Hyperlipidemia, Hypertension, Sleep Apnea/CPAP/BIPAP Additional Past Medical History / Comment(s): Heart murmur. AAA. RECURRENT SINUS POLYPS. ENVIRONMENTAL ALLERGIES. 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 SHELIA III 2018. History of Any Multi-Drug Resistant Organisms: None Reported Past Surgical History: Appendectomy, Ear Surgery Additional Past Surgical History / Comment(s): Nasal polyps x 3. BMT. Salpingectomy (one). Vulvar sx for SHELIA III (excision and laser Sx). Past Anesthesia/Blood Transfusion Reactions: Postoperative Nausea & Vomiting (PONV) Additional Past Anesthesia/Blood Transfusion Reaction / Comment(s): "FELL ILL FOR 1 WK" X1 OR. Past Psychological History: No Psychological Hx Reported Smoking Status: Current every day smoker (Half-pack per day) Past Alcohol Use History: Occasional (6 per week) Additional Past Alcohol Use History / Comment(s): SMOKING SINCE 1970, 1 PPD. FEW BEERS DAILY Past Drug Use History: Marijuana Additional Drug Use History / Comment(s): Marijuana use in the past, she denies current usage. Additional History: She has been since 1992 and is retired. - Past Family History Father Family Medical History: Myocardial Infarction ([place]) Mother Family Medical History: Cancer Additional Family Medical History / Comment(s): Widespread cancer of uncertain primary. Maternal aunts x2 had breast cancer Medications and Allergies Home Medications Medication Instructions Recorded Confirmed Type Atorvastatin [Lipitor] 20 mg PO HS 06/30/14 03/11/19 History Fluticasone/Salmeterol [Advair 1 puff INHALATION RT-BID 06/30/14 03/11/19 History 100-50 Diskus] Apixaban [Eliquis] 5 mg PO BID 12/13/17 03/11/19 History Cholecalciferol (Vitamin D3) 2,000 unit PO DAILY 12/13/17 03/11/19 History [Vitamin D3] Metoprolol Succinate (ER) [Toprol 50 mg PO DAILY 04/24/18 03/11/19 History Xl] Triamterene-Hctz 37.5-25Mg 1 cap PO DAILY 04/24/18 03/11/19 History [Dyazide 37.5-25 Capsule] Fluticasone Propion/Salmeterol 1 inhalation PO DAILY 03/11/19 03/11/19 History [Fluticasone-Salmeterol 500-50] Losartan [Cozaar] 50 mg PO BID 03/11/19 03/11/19 History Montelukast [Singulair] 10 mg PO DAILY 03/11/19 03/11/19 History Verapamil [Isoptin] 40 mg PO TID 03/11/19 03/11/19 History Allergies Allergy/AdvReac Type Severity Reaction Status Date / Time amoxicillin [From Augmentin] Allergy Nausea & Verified 03/11/19 11:31 Vomiting & Diarrhea clavulanic acid Allergy Nausea & Verified 03/11/19 11:31 [From Augmentin] Vomiting & Diarrhea Exam Vital Signs Temp Pulse Resp BP Pulse Ox 03/11/19 11:21 98.1 F 69 18 152/93 93 L Intake and Output 03/10/19 03/11/19 03/11/19 22:59 06:59 14:59 Other: Weight 77.564 kg Height 5 feet 2 inches, weight 171 pounds, BMI 31.3. This is a well-developed well-nourished white female who is alert and oriented times 3 in no acute distress. HEENT: Within normal limits. NECK: Supple without mass or thyromegaly. CHEST AND LUNGS: Clear to auscultation. HEART: Regular rate and rhythm. BREASTS: Are without mass or discharge. AXILLARY EXAM: Negative for adenopathy. BACK: Negative for CVA tenderness. ABDOMEN: Soft, nontender, without palpable masses. PELVIC EXAM: Normal external genitalia with mild atrophy. There is no vulvar or vaginal lesions noted. There seems to be a well-healed incision sites along the left labia which probably represents the local excision of the SHELIA III. Cervix and vagina appear normal with mild atrophy. There is no unusual discharge. There is no evidence of prolapse. The uterus is midposition, nongravid size and nontender. There are no palpable adnexal masses or tenderness. RECTAL EXAM: Rectovaginal exam is negative for mass or tenderness and is negative for occult blood. EXTREMITIES: Nontender. IMPRESSION: 1. 68-year-old menopausal female with history of SHELIA 3 and is status post local excision and laser ablation for residual SHELIA. No evidence of recurrence on exam today. 2. History of osteopenia status post more than 10 years use of Fosamax. PLAN: 1. Pap smear was deferred since she had a normal one on 02/12/2018. I will plan on repeating this next year and we will continue Pap smear testing beyond age 65 because of her history of SHELIA 3. She will continue to have follow-up with Dr. Alexander on a regular basis because of the SHELIA. Her next appointment is in April. 2. Self breast awareness was discussed with the patient. 3. Screening mammogram is scheduled for 03/28/2019. She states she has an order slip for this from Dr. Maynard. 4. Osteoporosis prevention was discussed. I have stressed the importance of ad equate calcium, vitamin D and regular exercise. Recommended amounts of calcium and vitamin D were also discussed. We will plan on repeating bone density testing next year. 5. She does not get flu shots in the fall. I have asked her to reconsider this. 6. She was advised to return in one year for her annual well woman exam.
== END ==
LOC: WWCWWP 11:13
PROVIDERS: ATTEND Obstetrics & Gynecology
DX: Z53.9 Procedure and treatment not carried out, unspecified reason (principal)

== ENCOUNTER → 2019-03-28 | Outpatient (CLI) | payer MEDICARE, BC ==
--- NOTE | 2019-03-28 09:39 | MM ---
Reason for exam: screening (asymptomatic). Last mammogram was performed 1 year and 1 month ago. History: Patient is postmenopausal and is nulliparous. Family history of breast cancer in maternal aunt at age 50 and breast cancer in maternal aunt at age 70. Took estrogen for 6 years beginning at age 44. Took progesterone for 6 years beginning at age 44. Physical Findings: A clinical breast exam by your physician is recommended on an annual basis and results should be correlated with mammographic findings. MG 3D Screening Mammo W/Cad Bilateral CC and MLO view(s) were taken. Prior study comparison: February 19, 2018, bilateral MG 3d screening mammo w/cad. November 24, 2016, bilateral MG 3d screening mammo w/cad. The breast tissue is heterogeneously dense. This may lower the sensitivity of mammography. There is no discrete abnormality. ASSESSMENT: Negative, BI-RAD 1 RECOMMENDATION: Routine screening mammogram of both breasts in 1 year.
== END | disposition home or self-care (01) ==
LOC: RADMAMWWP 08:39
PROVIDERS: ATTEND Internal Medicine
DX: Z12.31 Encounter for screening mammogram for malignant neoplasm of breast (principal)
CPT/HCPCS: 77063; 77067

== ENCOUNTER → 2019-04-10 | Outpatient (CLI) | payer MEDICARE, BC ==
--- NOTE | 2019-04-10 13:11 | SFUN ---
SLEEP CENTER FOLLOW UP NOTE DATE OF SERVICE: 04/10/2019. This 68-year-old lady came for follow-up visit for treatment of obstructive sleep apnea- hypopnea syndrome. Diagnostic sleep study showed obstructive sleep apnea with apnea- hypopnea index 30 and subsequent titration with BiPAP showed improving respiration on BiPAP. Today is her first visit after she was started on treatment with BiPAP. The patient is trying to use her BiPAP equipment, but she has difficulties to use her mask. The patient showed how she is using her mask and she does not correctly put her mask on the face. Some of the head gears is not in correct position. [place] Sleepiness Scale today is 13. I checked BiPAP unit. BiPAP pressure between 12/8. Usage is 27 out of 30 nights and usage for more than 4 hours 18 out of 30 nights with average usage 4.4 hours per night. Very high leak of 56 L/minute. Apnea-hypopnea index for the last night only 2.2 and for the whole month around 8.2. MEDICATIONS: Montelukast, losartan, metoprolol, triamterene, hydrochlorothiazide, verapamil, apixaban, atorvastatin, fluticasone, salmeterol, Advair. PHYSICAL EXAMINATION: During physical exam, patient in no distress. VITAL SIGNS: BP 177/92 on right arm, HR 83, RR 16, weight 173.4 pounds, temperature 98.2, oxygen saturation at room air 95%. HEENT: PERRLA, EOMI. Oropharynx low position of soft palate. Mallampati 3. NECK: Supple, no JVD. Thyroid is not palpable. LUNGS: Clear to percussion and to auscultation. Good air exchange. No wheezing or rhonchi. HEART: S1, S2 irregularly, irregular. ABDOMEN: Soft and nontender. Bowel sounds are present. No organomegaly appreciated. EXTREMITIES: No clubbing or cyanosis. EXTERMINATION INSPECTOR: Awake, alert, and oriented X3. Cranial nerves 2 to 7 intact. There is no fasciculation or atrophy. noted. No focal deficits observed. IMPRESSION: 1. Severe obstructive sleep apnea-hypopnea syndrome; apnea-hypopnea index is 30, most on control with BiPAP at the pressure of 12/8 cm of water. Patient used CPAP equipment with not corrected position of her mask some head gears was connected not correctly. Borderline compliance with treatment benefitting from treatment. 2. Periodic limb movements by sleep studies. Patient does not have any complaints of periodic limb movements. 3. Atrial fibrillation. 4. Hypertension. 5. Hyperlipidemia. 6. Obesity. 7. Allergies. 8. History of asthma and chronic obstructive pulmonary disease. 9. History of abdominal aortic aneurysm. PLAN: 1. had been shown how to properly adjust mask position. 2. She will continue to use BiPAP equipment every night for the whole night. 3. Watching weight. 4. Sleep hygiene with regular time in bed for 7-1/2 or 8 hours. 5. No driving if feeling any sleepiness. Thank you very much for allowing me to participate in management of your patient. Sincerely, Ryan Rosales MD, PhD, FAASM Diplomat of [employer] [facility] [place] MMODL / HARSHAL: [id number] /
== END | disposition home or self-care (01) ==
LOC: SLEEP 11:40
PROVIDERS: ATTEND Internal Medicine
DX: G47.33 Obstructive sleep apnea (adult) (pediatric) (principal); I48.91 Unspecified atrial fibrillation; I10 Essential (primary) hypertension; E78.5 Hyperlipidemia, unspecified; E66.9 Obesity, unspecified; T78.40XA Allergy, unspecified, initial encounter; Z87.09 Personal history of other diseases of the respiratory system; Z86.79 Personal history of other diseases of the circulatory system; Z99.89 Dependence on other enabling machines and devices; Z79.01 Long term (current) use of anticoagulants; Z79.899 Other long term (current) drug therapy

== ENCOUNTER → 2019-07-03 | Outpatient (CLI) | payer MEDICARE ==
--- NOTE | 2019-07-03 12:53 | SFUN ---
SLEEP CENTER FOLLOW UP NOTE DATE OF SERVICE: 07/03/2019 This 68-year-old lady has been followed in Sleep Center for treatment of obstructive sleep apnea-hypopnea syndrome. Patient trying to use her CPAP equipment every night, but sometimes has some problems with leak from her mask. [place] Sleepiness Scale today is 8. I checked patient BiPAP unit. BiPAP pressure is 12/8 cm of water. Usage is 29 out of 30 nights since 16 out of 30 nights for more than 4 hours. Average usage is 3.6 hours per night. Leak is 66 L/minute, spontaneous cycle 88.5%, apnea-hypopnea index 16. I checked patient's CPAP mask. She is using full face AirFit F30, small size, but she is not putting it correct on her face again. MEDICATIONS: Montelukast, losartan, metoprolol, triamterene, hydrochlorothiazide, verapamil atorvastatin, fluticasone, salmeterol, Advair. PHYSICAL EXAMINATION: During physical exam, patient in no distress. VITAL SIGNS: BP 141/91, HR 77, RR 12, height 5 feet 1 inch, weight 173.8, body mass index 32.3, temperature 97.8, oxygen saturation at room air 97%. HEENT: PERRLA, EOMI, evaluation of oropharynx showed tongue protrudes midline. NECK: Supple, no JVD. Thyroid is not palpable. LUNGS: Clear to percussion and to auscultation. Good air exchange. No wheezing or rhonchi. HEART: S1, S2 regular. No murmurs, gallops, or rubs. ABDOMEN: Slightly obese. EXTREMITIES: No clubbing or cyanosis. CONFECTIONERY MAKER: Awake, alert, and oriented X3. Cranial nerves 2 to 7 intact. There is no fasciculation or atrophy. noted. No focal deficits observed. IMPRESSION: 1. Severe obstructive sleep apnea-hypopnea syndrome; apnea-hypopnea index is 30. Patient demonstrated borderline compliance, still has problems with putting mask correct way on, significant air leak from the mask. Apnea-hypopnea index increased. 2. History of atrial fibrillation. 3. Hypertension. 4. Hyperlipidemia. 5. Obesity. 6. Allergies. 7. History of asthma and chronic obstructive pulmonary disease. 8. History of abdominal aortic aneurysm. PLAN: 1. Patient will continue BiPAP equipment every night for the whole night. 2. We again showed the patient how to use a full-face mask F30. 3. Losing weight. 4. Sleep hygiene. 5. No driving if feeling sleepiness. 6. Discussed precautions related to driving. No driving if feeling sleepiness. 7. Follow-up visit in 2 to 3 months to check in how patient is using her BiPAP and to check apnea-hypopnea index. Thank you very much for allowing me to participate in management of your patient. Sincerely, Ryan Rosales MD, PhD, FAASM Diplomat of [employer] [facility] [place] MMODL / IJN: [id number] /
== END | disposition home or self-care (01) ==
LOC: SLEEP 11:47
PROVIDERS: ATTEND Internal Medicine
DX: G47.33 Obstructive sleep apnea (adult) (pediatric) (principal); Z86.79 Personal history of other diseases of the circulatory system; I10 Essential (primary) hypertension; E78.5 Hyperlipidemia, unspecified; E66.9 Obesity, unspecified; T78.40XA Allergy, unspecified, initial encounter; Z87.09 Personal history of other diseases of the respiratory system; Z99.89 Dependence on other enabling machines and devices; Z68.32 Body mass index [BMI] 32.0-32.9, adult; Z79.51 Long term (current) use of inhaled steroids; Z79.899 Other long term (current) drug therapy

== ENCOUNTER → 2019-10-21 | Outpatient (CLI) | payer MEDICARE ==
--- NOTE | 2019-10-21 09:16 | US ---
EXAMINATION TYPE: US duplex aorta DATE OF EXAM: 10/21/2019 COMPARISON: Ultrasound aorta January 31, 2018 CLINICAL HISTORY: I71.4 AAA WITHOUT RUPTURE. Hx AAA. Follow up. EXAM MEASUREMENTS: Abdominal Aorta: Proximal: 1.6 x 1.7 cm Mid: 1.6 x 2.3 cm Distal: 1.2 x 1.8 cm Bifurcation: Right- 1.2 x 0.9 cm Left- 1.2 x 0.8 cm Mid/Distal AAA visualized measuring = 5.6 x 4.0 x 3.9 cm Persistent AAA measuring 5 to 6 cm in length and 3.9 cm AP by 4.0 cm transversely. IMPRESSION: Interval progression of mid to distal AAA up to 4.0 cm in diameter. At minimum ultrasound follow-up in 1 year time is advised.
== END ==
LOC: RADUSWWP 08:12
PROVIDERS: ATTEND Internal Medicine
DX: I71.4 Abdominal aortic aneurysm, without rupture (principal)
CPT/HCPCS: 93979

== ENCOUNTER 2020-05-14 06:22 | Day surgery (SDC) | payer MEDICARE ==
[2020-05-11 10:20] VITALS: BMI 32.1
[~2020-05-14 06:22] MED LIST changes: +ACETAMINOPHEN TAB 500 MG TAB PO PRN; -DEXAMETHASONE SOD PHOSPHATE 10 MG/ML 1 ML VIAL IV ONE; +HEPARIN SODIUM,PORCINE 5,000 UNIT/ML 1 ML VIAL SQ PRN; -HYDROmorphone 0.5 MG/0.5 ML SYRINGE IVP PRN; -LACTATED RINGERS 1,000 ML IV SCH; -LIDOCAINE 1% 20 ML VIAL (10MG/ML) FOR IV START INTRADERMA PRN; -MIDAZOLAM 2 MG/2 ML VIAL IV PRN; -ONDANSETRON 4 MG/2 ML VIAL IVP ONE; -SCOPOLAMINE 1.5MG/72HR PATCH TRANSDERM ONE
[2020-05-14 06:57] VITALS: RESP 16; TEMP 98.4
[2020-05-14] MEDS ORDERED: LACTATED RINGERS 1,000 ML IV ONE (06:58)
[2020-05-14] MEDS ORDERED: LIDOCAINE 1% (10MG/ML) FOR IV START INTRADERMA ONE (06:59)
[2020-05-14] MEDS ORDERED: ONDANSETRON 4 MG/2 ML VIAL ONE (07:04)
[2020-05-14] MEDS ORDERED: DEXAMETHASONE SOD PHOSPHATE 4 MG/ML 1 ML VIAL IV ONE (07:10)
[2020-05-14] MEDS ORDERED: LIDOCAINE 1% INJ 10MG/ML (20 ML MDV) ONE (07:49)
[2020-05-14] MEDS ORDERED: ceFAZolin 1,000 MG VIAL ONE (07:49)
[2020-05-14] MEDS ORDERED: PROPOFOL 10 MG/ML 20 ML VIAL IV ONE (07:49)
[2020-05-14] MEDS ORDERED: MIDAZOLAM 2 MG/2 ML VIAL ONE (07:49)
[2020-05-14] MEDS ORDERED: fentaNYL (PF) 50 MCG/ML 2 ML AMP ONE (07:49)
[2020-05-14] MEDS ORDERED: LIDOCAINE 1%-EPI 1:100,000 20 ML VIAL SQ ONE ×3 (08:05→08:09)
--- NOTE | 2020-05-14 09:06 | P.GSHP ---
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 She presents today for wide local excision. Past Medical History Past Medical History: Atrial Fibrillation, Asthma, COPD, Hyperlipidemia, Hypertension, Sleep Apnea/CPAP/BIPAP Additional Past Medical History / Comment(s): Heart murmur. AAA. RECURRENT SINUS POLYPS. ENVIRONMENTAL ALLERGIES. PAST PHYSIOLOGICAL CHEMIST HISTORY: She has no history of STDs. SHELIA III 2018. History of Any Multi-Drug Resistant Organisms: None Reported Past Surgical History: Appendectomy, Ear Surgery Additional Past Surgical History / Comment(s): Nasal polyps x 3. BMT. Salpingectomy (one). Vulvar sx for SHELIA III (excision and laser Sx). Past Anesthesia/Blood Transfusion Reactions: Previous Problems w/ Anesthesia, Postoperative Nausea & Vomiting (PONV) Additional Past Anesthesia/Blood Transfusion Reaction / Comment(s): "FELL ILL FOR 1 WK" X1 OR. Smoking Status: Current every day smoker - Past Family History Father Family Medical History: Myocardial Infarction (NH) Mother Family Medical History: Cancer Additional Family Medical History / Comment(s): Widespread cancer of uncertain primary. Maternal aunts x2 had breast cancer Medications and Allergies Home Medications Medication Instructions Recorded Confirmed Type Atorvastatin [Lipitor] 20 mg PO HS 06/30/14 05/14/20 History Fluticasone/Salmeterol [Advair 1 puff INHALATION RT-BID 06/30/14 05/14/20 History 100-50 Diskus] Apixaban [Eliquis] 5 mg PO BID 12/13/17 05/14/20 History Cholecalciferol (Vitamin D3) 2,000 unit PO DAILY 12/13/17 05/14/20 History [Vitamin D3] Metoprolol Succinate (ER) [Toprol 50 mg PO TID 04/24/18 05/14/20 History Xl] Triamterene-Hctz 37.5-25Mg 1 cap PO DAILY 04/24/18 05/14/20 History [Dyazide 37.5-25 Capsule] Fluticasone Propion/Salmeterol 1 inhalation PO DAILY 03/11/19 05/14/20 History [Fluticasone-Salmeterol 500-50] Losartan [Cozaar] 50 mg PO DAILY 03/11/19 05/14/20 History Verapamil [Isoptin] 60 mg PO DAILY 03/11/19 05/14/20 History Allergies Allergy/AdvReac Type Severity Reaction Status Date / Time amoxicillin [From Augmentin] Allergy Nausea & Verified 05/11/20 10:10 Vomiting & Diarrhea clavulanic acid Allergy Nausea & Verified 05/11/20 10:10 [From Augmentin] Vomiting & Diarrhea Surgical - Exam Vital Signs Temp Pulse Resp BP Pulse Ox 98.4 F 60 16 142/85 96 05/14/20 06:55 05/14/20 06:55 05/14/20 06:55 05/14/20 06:55 05/14/20 06:55 - General well developed, well nourished, no distress - Eyes PERRL - ENT normal pinna - Neck no masses - Respiratory normal expansion - Cardiovascular Rhythm: regular - Abdomen Abdomen: soft, non tender - Integumentary 1.5 cm left arm squamous cell carcinoma Assessment and Plan Assessment: Left arm squamous cell carcinoma. We'll perform wide local excision.
--- NOTE | 2020-05-14 09:09 | P.OP ---
Date of Procedure: 05/14/20 Preoperative Diagnosis: Left arm squamous cell carcinoma Postoperative Diagnosis: Left arm squamous cell carcinoma Procedure(s) Performed: Wide local excision of left arm squamous cell carcinoma Anesthesia: MAC Surgeon: Karthikeyan Elise Estimated Blood Loss (ml): 2 Pathology: other (Left arm squamous cell carcinoma) Condition: stable Disposition: PACU Description of Procedure: Patient's placed in the operative table in supine position. He received IV sedation. Her left arm was prepped and draped usual sterile fashion. The skin was anesthetized 1% local Xylocaine. Using 11 blade the squamous cell carcinoma was excised. Cautery used to divide the subcutaneous tissues. The specimen was tagged with a suture on the superior aspect. The specimen measured approximately 1.5 x 2 cm. The specimens of pathology. Skin was closed interrupted 3-0 Monocryl suture. Dermabond was applied. Patient top she will was sent to recovery room in stable condition.
[2020-05-14 09:10] VITALS: BP 130/83; PULSE 71
== END 2020-05-14 09:22 | disposition home or self-care (01) ==
LOC: OR 06:22
PROVIDERS: ATTEND Surgery
DX: C44.629 Squamous cell carcinoma of skin of left upper limb, including shoulder (principal); I48.91 Unspecified atrial fibrillation; J45.909 Unspecified asthma, uncomplicated; J44.9 Chronic obstructive pulmonary disease, unspecified; E78.5 Hyperlipidemia, unspecified; I10 Essential (primary) hypertension; G47.33 Obstructive sleep apnea (adult) (pediatric); Z99.89 Dependence on other enabling machines and devices; R01.1 Cardiac murmur, unspecified; I71.4 Abdominal aortic aneurysm, without rupture; Z85.44 Personal history of malignant neoplasm of other female genital organs; Z90.89 Acquired absence of other organs; Z98.890 Other specified postprocedural states; F17.200 Nicotine dependence, unspecified, uncomplicated; I25.2 Old myocardial infarction; Z80.3 Family history of malignant neoplasm of breast; Z79.01 Long term (current) use of anticoagulants; Z79.51 Long term (current) use of inhaled steroids; Z79.899 Other long term (current) drug therapy; Z88.0 Allergy status to penicillin
CPT/HCPCS: 88305; 11602; J2250; J1644; J1100; J2405; J0690; J2001; J3010; J2704

== ENCOUNTER → 2020-05-19 | Outpatient (CLI) | payer MEDICARE ==
--- NOTE | 2020-05-19 09:28 | CTL ---
EXAMINATION TYPE: CT Low Dose Lung DATE OF EXAM ORDERED: 05/19/2020 HISTORY: Long-term tobacco use. Lung cancer screening CT DLP: [address] CTDI: 1.68 mGy Automated exposure control for dose reduction was used. SCREENING VISIT: Initial study COMPARISON: Chest x-ray July 12, 2018 TECHNIQUE: Low dose computed tomography scan was performed through the chest at 1 mm thick sections a nd reconstructed images in the coronal plane at [address] DIAGNOSTIC QUALITY: Limited, but interpretable FINDINGS: LUNG NODULES: Present, detailed below: Scattered micronodules all measure 3 mm or smaller in size for reference 2 mm anterior left upper to mid lung nodule axial image 111. No significant nodules greater than 4 mm identified. LUNGS: COPD: Severity: Moderate Fibrosis: Severity: Mild Lymph nodes: No greater than 1 cm Other findings: None BILATERAL PLEURAL SPACE: Effusion: None Calcification: None Thickening: None Pneumothorax: None HEART: Heart Size: Upper limits of normal Coronary calcification: [id number] in the LAD distribution Pericardial effusion: None. OTHER FINDINGS: Upper abdomen: None. Bony thorax: Mild multilevel spurring Supraclavicular region: None. Other: None. IMPRESSION: Scattered micronodules. No suspicious greater than [address] LUNG RAD AND CT CHEST RECOMMENDATION: Lung-Rad 2 Benign Appearance or Behavior: Continue annual sc reening with LDCT in 12 months. S Modifier (other clinically significant findings): None
== END | disposition home or self-care (01) ==
LOC: RADCTMAIN 08:40
PROVIDERS: ATTEND Internal Medicine
DX: Z12.2 Encounter for screening for malignant neoplasm of respiratory organs (principal); F17.210 Nicotine dependence, cigarettes, uncomplicated
CPT/HCPCS: 71271

== ENCOUNTER → 2020-08-10 | Outpatient (CLI) | payer MEDICARE ==
--- NOTE | 2020-08-10 16:29 | BD ---
EXAMINATION TYPE: Axial Bone Density DATE OF EXAM: 08/10/2020 COMPARISON: 02.19.2018 CLINICAL HISTORY: 69 YR OLD FEMALE....ICD-10 CODE: Z78.0 POST MENOPAUSAL Height: 60.8 Weight: 176 FRAX RISK QUESTIONS: Family History (Parent hip fracture): YES Glucocorticoids (More than 3mos): YES (Ex: prednisone, prednisolone, methylprednisolone, dexamethasone, and hydrocortisone). Current Tobacco Use: YES RISK FACTORS HISTORY OF: Family History of Osteoporosis: MOTHER AND HER SISTERS, WITH HIP FXS Diet low in dairy products/other sources of calcium: YES Postmenopausal woman: YES, AT AGE 46 Take estrogen and/or progesterone medications: ERT IN THE PAST FOR SHORT WHILE....NONE NOW Lost more than 2 inches in height since high school: YES Hyperparathyroidism: NO Adrenal Insufficiency: NO MEDICATIONS: Prednisone or other steroids: YES, LEXLAIR, ADVAIR GENERIC, ASTHMA How Long: MANY YRS Osteoporosis Medications: FOSAMAX FOR MANY YRS, OFF NOW FOR ABOUT 10 YRS Additional Medications: BP MEDS, STATIN FOR CHOLESTEROL, VIT D AND CALCIUM, Additional History: HYPERTENSION, CHOLESTEROL, ASTHMA EXAM MEASUREMENTS: Bone mineral densitometry was performed using the [employer] System. Bone mineral density as measured about the Lumbar spine is: ----- L1-L4(G/cm2): 1.059 T Score Values are as follows: ----- L1: -0.6 ----- L2: -0.6 ----- L3: -1.2 ----- L4: -1.5 ----- L1-L4: -0.6 Bone mineral density has: Decreased -1.3% since study of: 02.19.2018 Bone mineral density about the R hip (g/cm2): 0.801 Bone mineral density about the L hip (g/cm2): 0.887 T Score values are as follows: -----R Neck: -2.2 -----L Neck: -1.8 -----R Total: -1.6 -----L Total: -1.0 Bone mineral density has: Decreased -2.8% since study of: 02.19.2018 FRAX%s: THERE IS A 21.0% CHANCE FOR A MAJOR OSTEOPOROTIC FX AND A 8.4% FOR HIP.....PROBABILITY FOR FX IN 10 YRS TIME IMPRESSION: Osteopenia (T Score between -2.5 and -1). There is slightly increased risk of fracture and the patient may be considered for treatment. Re-Screen 2-5 years. NOTE: T-SCORE=SD OF THE YOUNG ADULT MEAN.
--- NOTE | 2020-08-11 12:05 | MM ---
Reason for exam: screening (asymptomatic). Last mammogram was performed 1 year and 4 months ago. History: Patient is postmenopausal and is nulliparous. Family history of breast cancer in maternal aunt at age 50 and breast cancer in maternal aunt at age 70. Took estrogen for 6 years beginning at age 44. Took progesterone for 6 years beginning at age 44. Physical Findings: A clinical breast exam by your physician is recommended on an annual basis and results should be correlated with mammographic findings. MG 3D Screening Mammo W/Cad Bilateral CC and MLO view(s) were taken. Prior study comparison: March 28, 2019, bilateral MG 3d screening mammo w/cad. February 19, 2018, bilateral MG 3d screening mammo w/cad. The breast tissue is heterogeneously dense. This may lower the sensitivity of mammography. There is chronic nodularity in the right breast. Asymmetric breast tissue right breast, stable. There is no discrete abnormality. ASSESSMENT: Negative, BI-RAD 1 RECOMMENDATION: Routine screening mammogram of both breasts in 1 year.
== END | disposition home or self-care (01) ==
LOC: RADMAMWWP 09:39
PROVIDERS: ATTEND Internal Medicine
DX: Z12.31 Encounter for screening mammogram for malignant neoplasm of breast (principal); M85.89 Other specified disorders of bone density and structure, multiple sites; Z80.3 Family history of malignant neoplasm of breast; Z78.0 Asymptomatic menopausal state
CPT/HCPCS: 77063; 77067; 77080

== ENCOUNTER → 2020-11-02 | Outpatient (CLI) | payer MEDICARE ==
--- NOTE | 2020-11-02 08:22 | US ---
EXAMINATION TYPE: US duplex aorta DATE OF EXAM: 11/02/2020 COMPARISON: US 10/21/19, 01/31/18 CLINICAL HISTORY: I71.4 AAA. EXAM MEASUREMENTS: Abdominal Aorta: Proximal: 2.3 x 1.7 cm Mid: 1.9 x 1.8 cm Distal: AAA = 5.7 x 4.2 x 4.2 cm Bifurcation: 1.0 cm 1.1 cm AAA previously measured 5.6 by 4.0 x 3.9 cm IMPRESSION: 1. Abdominal aortic aneurysm at the distal infrarenal portion measuring 5.7 x 4.2 x 4.2 cm. This prev iously measured 5.6 x 4.0 x 3.9 cm on 10/21/2019. No significant interval change in size. This could b e evaluated by CT angiogram of the abdomen if clinically indicated.
== END | disposition home or self-care (01) ==
LOC: RADUSWWP 07:34
PROVIDERS: ATTEND Internal Medicine
DX: I71.4 Abdominal aortic aneurysm, without rupture (principal)
CPT/HCPCS: 93979

== ENCOUNTER → 2020-12-02 | Outpatient (CLI) | payer MEDICARE ==
--- NOTE | 2020-12-03 07:53 | SFUN ---
SLEEP CENTER FOLLOW UP NOTE DATE OF SERVICE: 12/02/2020 INTERVAL HISTORY: A 70-year-old lady who has been followed in Sleep Center for treatment of obstructive sleep apnea-hypopnea syndrome. Patient continued to use her BIPAP equipment every night and feels slightly better with equipment. She still continues to show atrial fibrillation. No snoring with the machine. It is time for her to replace his CPAP supplies. [place] Sleepiness Scale increased to 13. I checked her BiPAP unit. BiPAP pressure is 12/8 cm of water. Usage is 30/30 nights and 17/30 nights for more than 4 hours. Average usage 4.3 hours per night. Leak is 11 L/minute which is acceptable. Apnea-hypopnea index increased to 8.2. MEDICATIONS: Losartan 100 mg once a day, triamterene hydrochlorothiazide 37.5/25 mg once a day, Eliquis 5 mg once a day, fexofenadine 150 mg once a day, verapamil 180 mg once a day, atorvastatin 20 mg once a day, metoprolol 50 mg 3 times a day, fluticasone, salmeterol. PHYSICAL EXAMINATION: GENERAL: Patient in no distress. VITAL SIGNS: BP 141/71, HR 67, RR 16, height 5 feet 2 inches, weight 177.8, temperature 97.6, oxygen saturation at room air 97%. Body mass index 32.3. HEENT: PERRLA, EOMI, evaluation of oropharynx showed tongue protrudes midline. NECK: Supple, no JVD. Thyroid is not palpable. LUNGS: Clear to percussion and to auscultation. Good air exchange. No wheezing or rhonchi. HEART: S1, S2 irregular. ABDOMEN: Soft and nontender. Bowel sounds are present. No organomegaly appreciated. EXTREMITIES: No clubbing or cyanosis. TRAFFIC REPORTER: Awake, alert, and oriented X3. Cranial nerves 2 to 7 intact. There is no fasciculation or atrophy. noted. No focal deficits observed. IMPRESSION: 1. Obstructive sleep apnea-hypopnea syndrome in severe range. Apnea-hypopnea index 30. The patient demonstrated borderline compliance with treatment. Improvements in respiration on CPAP, but there is still apnea-hypopnea index slightly above normal range. 2. Atrial fibrillation. 3. Hypertension. 4. Hyperlipidemia. 5. Mild obesity BMI 32.3. 6. Allergies. 7. History of asthma and COPD. 8. History of abdominal aortic aneurysm. PLAN: 1. Patient will continue to use PAP equipment every night for the whole night. I changed regimen of the BiPAP unit to the maximal inspiratory pressure of 15, minimal expiratory pressure of 6 and pressure support to keep 4. 2. Sleep hygiene with regular time in bed for at least 7-1/2 to 8 hours. 3. Precautions related to driving. No driving if feeling sleepiness. 4. I will maintain all necessary prescription for PAP supplies including mask, tube, filters. 5. Watching weight. 6. Follow-up visit in 6 months or earlier if patient has any problems. Thank you very much for allowing me to participate in the management of your patient. MMODL / IJN: [id number] /
== END | disposition home or self-care (01) ==
LOC: SLEEP 14:55
PROVIDERS: ATTEND Internal Medicine
DX: G47.33 Obstructive sleep apnea (adult) (pediatric) (principal); I48.91 Unspecified atrial fibrillation; I10 Essential (primary) hypertension; E78.5 Hyperlipidemia, unspecified; E66.9 Obesity, unspecified; T78.40XA Allergy, unspecified, initial encounter; Z68.32 Body mass index [BMI] 32.0-32.9, adult

== ENCOUNTER → 2021-06-02 | Outpatient (CLI) | payer MEDICARE ==
--- NOTE | 2021-06-02 15:40 | SFUN ---
SLEEP CENTER FOLLOW UP NOTE DATE OF SERVICE: 06/02/2021 This 70-year-old lady has been followed in Sleep Center for treatment of obstructive sleep apnea-hypopnea syndrome. The patient continues to use her CPAP equipment every night. She complains that using a full-face mask is not very comfortable on her face. [place] Sleepiness Scale today is 11, which is slightly increased. I checked her BiPAP unit. Maximal inspiratory pressure 15. Minimal expiratory pressure 6. Pressure support 4. Usage is 30/30 nights, 24/30 nights for more than 4 hours, average 5.2 hours per night. Leak is 25 L/minute, which is borderline. Apnea-hypopnea index 6.0. MEDICATIONS: 1. Atorvastatin 20 mg once a day. 2. Metoprolol 100 mg once a day. 3. Fluticasone. 4. Eliquis 5 mg once a day. 5. Triamterene/hydrochlorothiazide 37.5/25 mg once a day. 6. Fexofenadine 180 mg once a day. 7. Verapamil 180 mg once a day. PHYSICAL EXAMINATION: GENERAL: Pleasant patient in no distress. VITAL SIGNS: BP 121/73, HR 71, RR 18, height 5 feet 2 inches, weight 179.2 pounds, temperature 97.5, oxygen saturation at room air 98%. HEENT: PERRLA, EOMI, evaluation of oropharynx showed tongue protrudes midline. NECK: Supple, no JVD. Thyroid is not palpable. LUNGS: Clear to percussion and to auscultation. Good air exchange. No wheezing or rhonchi. HEART: S1, S2 irregular. ABDOMEN: Soft and nontender. Bowel sounds are present. No organomegaly appreciated. EXTREMITIES: No clubbing or cyanosis. INFORMATICS ANALYST: Awake, alert, and oriented X3. Cranial nerves 2 to 7 intact. There is no fasciculation or atrophy. noted. No focal deficits observed. IMPRESSION: 1. Obstructive sleep apnea-hypopnea syndrome. Original apnea-hypopnea index 30.0. The patient demonstrated good compliance with treatment, benefitting from treatment. Apnea-hypopnea has been index reduced compared with the previous visit to practically normal range. 2. Atrial fibrillation. 3. Hypertension. 4. Hyperlipidemia. 5. Mild obesity. 6. Allergies. 7. History of asthma and COPD. 8. History of abdominal aortic aneurysm. PLAN: 1. Patient will continue to use PAP equipment every night for the whole night. 2. Sleep hygiene with regular time in bed for at least 7-1/2 to 8 hours. 3. Precautions related to driving. No driving if feeling sleepiness. 4. I will maintain all necessary prescription for PAP supplies including mask, tube, filters. 5. Watching weight. 6. Follow-up visit in 6 months or earlier if patient has any problems. Thank you very much for allowing me to participate in the management of your patient. Sincerely, Ryan Rosales MD, PhD, FAASM Diplomat of [place] [employer] Sleep Medicine Board of [employer] [facility] [place] MMODL / IJN: [id number] /
== END ==
LOC: SLEEP 13:47
PROVIDERS: ATTEND Internal Medicine
DX: G47.33 Obstructive sleep apnea (adult) (pediatric) (principal); I48.91 Unspecified atrial fibrillation; I10 Essential (primary) hypertension; E78.5 Hyperlipidemia, unspecified; E66.9 Obesity, unspecified; Z86.79 Personal history of other diseases of the circulatory system

== ENCOUNTER → 2021-06-21 | Outpatient (CLI) | payer MEDICARE, BC ==
--- NOTE | 2021-06-21 19:58 | CT ---
EXAMINATION TYPE: CT chest w con DATE OF EXAM: 06/21/2021 COMPARISON: CT dated 05/19/2020 HISTORY: restrictive lung disease CT DLP: 622 mGycm Automated exposure control for dose reduction was used. TECHNIQUE: CT scan of the chest is performed with IV Contrast, patient injected with 100 mL of Isovue 300. FINDINGS: Moderate centrilobular emphysematous changes are seen mainly in the upper lung lobes. Minimal bilater al basal subsegmental pulmonary atelectasis. Unremarkable lungs otherwise. Patent central airways. No pleural or pericardial effusion. Cardiomegaly with dilatation of the left atrium and to a lesser ext ent the right atrium, please correlate with echocardiographic results. Scattered arterial atherosclerotic calcifications including coronary arterial calcifications. The pul monary trunk measures up to 3.3 cm and the right pulmonary artery measures 3.1 cm suggestive of pulmo nary hypertension. No pathologically enlarged lymph nodes in the chest. Osteopenia. Degenerative ferrari ges of the thoracic spine. No aggressive bone lesion. Unremarkable upper abdomen. IMPRESSION: 1. Moderate centrilobular emphysematous changes mainly seen in the upper lung lobes. Please correlate with history of smoking. 2. Cardiomegaly with biatrial enlargement, please correlate with echocardiographic results. 3. Dilated pulmonary trunk and right pulmonary artery suggestive of pulmonary hypertension, for clini jacques correlation and further workup. Other incidental findings as described above.
== END | disposition home or self-care (01) ==
LOC: RADCTMAIN 08:22
PROVIDERS: ATTEND Internal Medicine
DX: I51.7 Cardiomegaly (principal); J98.4 Other disorders of lung
CPT/HCPCS: 82565; 84520; 71260; 36415; Q9967

== ENCOUNTER → 2021-09-13 | Outpatient (CLI) | payer BC, MEDICARE ==
[2021-09-13 12:47] VITALS: BP 145/88; PULSE 75; RESP 18; TEMP 97.8
--- NOTE | 2021-09-13 13:52 | P.HPOB ---
History of Present Illness H&P Date: 09/13/21 Chief Complaint: The patient is here for her routine gynecologic exam. This is a 71-year-old G0 with an LMP of 1997. The patient is without gynecologic complaints. She has a history of SHELIA 3 and is status post wide local excision on 03/19/[address] Martel. This excision procedure showed SHELIA 2-3 extending to the margin. Dr. Martel referred her to the gynecologic oncologist, Dr. Alexander. Dr. Alexander did a laser ablation of the SHELIA in September 2018. Dr. Alexander was seeing the patient every 6 months for the vulvar skip these. Dr. Alexander is no longer at [facility] so she did see a different gynecologic oncologist one time. She would like to have follow-up here instead of going down to see the gynecologic oncologist. Review of Systems The patient has gained 4 pounds over the last year. She denies respiratory, cardiac, or G.I. problems. Past Medical History Past Medical History: Atrial Fibrillation, Asthma, COPD, Hyperlipidemia, Hypertension, Sleep Apnea/CPAP/BIPAP Additional Past Medical History / Comment(s): Heart murmur. AAA. RECURRENT SINUS POLYPS. ENVIRONMENTAL ALLERGIES. PAST [employer] CHAIR HISTORY: She has no history of STDs. SHELIA III 2018. History of Any Multi-Drug Resistant Organisms: None Reported Past Surgical History: Appendectomy, Ear Surgery Additional Past Surgical History / Comment(s): Nasal polyps x 3. BMT. Salpingectomy (one). Vulvar sx for SHELIA III (excision 2018 and laser Sx 2019). Past Anesthesia/Blood Transfusion Reactions: Previous Problems w/ Anesthesia, Postoperative Nausea & Vomiting (PONV) Additional Past Anesthesia/Blood Transfusion Reaction / Comment(s): "FELL ILL FOR 1 WK" X1 OR. Past Psychological History: No Psychological Hx Reported Smoking Status: Current every day smoker (Less than one pack per day.) Past Alcohol Use History: Occasional (8 per week) Additional Past Alcohol Use History / Comment(s): SMOKING SINCE 1970, 1 PPD. Past Drug Use History: Marijuana (She denies use since 2020.) Additional Drug Use History / Comment(s): Marijuana use in the past, she denies current usage. - Past Family History Father Family Medical History: Myocardial Infarction ([place]) Mother Family Medical History: Cancer Additional Family Medical History / Comment(s): Widespread cancer of uncertain primary. Maternal aunts x2 had breast cancer Medications and Allergies Home Medications Medication Instructions Recorded Confirmed Type Atorvastatin [Lipitor] 20 mg PO HS 06/30/14 09/13/21 History Fluticasone/Salmeterol [Advair 1 puff INHALATION RT-BID 06/30/14 09/13/21 History 100-50 Diskus] Apixaban [Eliquis] 5 mg PO BID 12/13/17 09/13/21 History Cholecalciferol (Vitamin D3) 2,000 unit PO DAILY 12/13/17 09/13/21 History [Vitamin D3] Metoprolol Succinate (ER) [Toprol 50 mg PO TID 04/24/18 09/13/21 History Xl] Triamterene-Hctz 37.5-25Mg 1 cap PO DAILY 04/24/18 09/13/21 History [Dyazide 37.5-25 Capsule] Fluticasone Propion/Salmeterol 1 inhalation PO DAILY 03/11/19 09/13/21 History [Fluticasone-Salmeterol 500-50] Losartan [Cozaar] 50 mg PO DAILY 03/11/19 09/13/21 History Verapamil [Isoptin] 60 mg PO DAILY 03/11/19 09/13/21 History Fexofenadine HCl 180 mg PO DAILY 09/13/21 09/13/21 History Allergies Allergy/AdvReac Type Severity Reaction Status Date / Time amoxicillin [From Augmentin] Allergy Nausea & Verified 09/13/21 12:40 Vomiting & Diarrhea clavulanic acid Allergy Nausea & Verified 09/13/21 12:40 [From Augmentin] Vomiting & Diarrhea Exam Vital Signs Temp Pulse Resp BP Pulse Ox 09/13/21 12:44 97.8 F 75 18 145/88 96 Intake and Output 09/12/21 09/13/21 09/13/21 22:59 06:59 14:59 Other: Weight 79.379 kg Height 5 feet 2 inches, weight 175 pounds, BMI 32.0. This is a well-developed well-nourished white female who is alert and oriented times 3 in no acute distress. HEENT: Within normal limits. NECK: Supple without mass or thyromegaly. CHEST AND LUNGS: Clear to auscultation. HEART: Regular rate and rhythm. BREASTS: Are without mass or discharge. The right nipple has a 2 mm mole at the 8 o'clock position which is not inflamed and nontender. AXILLARY EXAM: Negative for adenopathy. BACK: Negative for CVA tenderness. ABDOMEN: Soft, nontender, without palpable masses. PELVIC EXAM: Normal external genitalia with mild atrophy. There seems to be a well-healed incisions along the inner aspect of the left labia which seems to represent the area of local excision of the SHELIA. There is no leukoplakia or suspicious appearing areas. Cervix and vagina appear normal with mild atrophy. There is no unusual discharge. There is no evidence of prolapse. The uterus is midposition, nongravid size and nontender. There are no palpable adnexal masses or tenderness. RECTAL EXAM: Rectovaginal exam is negative for mass or tenderness and is negative for occult blood. EXTREMITIES: Nontender. IMPRESSION: 1. 71-year-old menopausal female who is status post local excision of SHELIA 3 (2018)and later laser ablation of SHELIA (2019). No evidence of recurrence on visual inspection. The patient is no longer seeing her gynecologic oncologist and would like to have follow-up done locally. 2. History of osteopenia status post 10 years use of Fosamax. PLAN: 1. Pap smear was performed. She is considered high risk because of her history of greater than 4 sexual partners and because of her history of SHELIA 3. Pap smear screening will be continued. 2. Self breast awareness was discussed with the patient. We have also discussed symptoms associated with inflammatory breast cancer. 3. Screening mammogram is due and the order slip was given to the patient for this. 4. The patient was instructed by her gynecologic oncologist to continues vulvoscopies every 6 months. She will be referred to Dr. Martel, include did her wide local excision of SHELIA 3 in 2018. She will be referred for vulvoscopy. 5. Osteoporosis prevention was discussed. I have stressed the importance of adequate calcium, vitamin D and regular exercise. Recommended amounts of calcium and vitamin D were also discussed. She had a bone density test done on 08/10/2020 which showed osteopenia. We will plan on repeating bone density testing in 1 year. 6. She has not received a Covid vaccination and has not had Covid. I have recommended covert vaccination. She will consider this. 7. She was advised to return in one year for her annual well woman exam.
== END | disposition home or self-care (01) ==
LOC: WWCWWP 12:20
PROVIDERS: ATTEND Obstetrics & Gynecology
DX: Z53.9 Procedure and treatment not carried out, unspecified reason (principal)

== ENCOUNTER → 2021-10-05 | Outpatient (CLI) | payer MEDICARE ==
--- NOTE | 2021-10-06 18:28 | MM ---
Reason for Exam: Screening (asymptomatic). Last mammogram was performed 1 year(s) and 2 month(s) ago. Patient History: Menarche at age 13. Patient has no children. Postmenopausal. Estrogen for 6 years from age 44 until age 50. Progesterone for 6 years from age 44 until age 50. Maternal aunt had breast cancer, age 50. Maternal aunt had breast cancer, age 70. Risk Values: Fe 5 year model risk: 1.9%. NCI Lifetime model risk: 5.4%. Prior Study Comparison: 02/19/2018 Bilateral Screening Mammogram, [facility]. 03/28/2019 Bilateral Screening Mammogram, [facility]. 08/10/2020 Bilateral Screening Mammogram, [facility]. Tissue Density: The breast tissue is extremely dense which could obscure a lesion on mammography. Findings: Analyzed By CAD. Chronic nodularity is present appears stable. No significant interval change is evident. No suspicious groups of microcalcifications, spiculated or lobular masses, architectural distortion or other secondary signs of malignancy are mammographically apparent. Overall Assessment: Benign, BI-RAD 2 Management: Screening Mammogram of both breasts in 1 year. A negative mammogram report should not preclude additional follow up of suspicious palpable abnormalities. Patient should continue monthly self breast exam. A clinical breast exam by your physician is recommended on an annual basis and results should be correlated with mammographic findings. Electronically signed and approved by: Noel Pizano D.O. Radiologis
== END | disposition home or self-care (01) ==
LOC: RADMAMWWP 07:58
PROVIDERS: ATTEND Obstetrics & Gynecology
DX: Z12.31 Encounter for screening mammogram for malignant neoplasm of breast (principal)
CPT/HCPCS: 77063; 77067

== ENCOUNTER → 2021-10-19 | Outpatient (CLI) | payer MEDICARE ==
--- NOTE | 2021-10-19 07:58 | US ---
EXAMINATION TYPE: US duplex aorta DATE OF EXAM: 10/19/2021 COMPARISON: NONE CLINICAL HISTORY: I71.4 ABDOMINAL AORTIC ANEURYSM, WITHOUT RUPTURE. known distal AAA EXAM MEASUREMENTS: Abdominal Aorta: Proximal: 2.4 x 2.3cm Mid: 2.1 x 2.3cm Distal: 4.7 x 4.9-5.3cm, AP 5.0cm Bifurcation: Rt 1.1cm Lt 1.2cm IMPRESSION: Abdominal aortic aneurysm distal abdominal aorta.
== END | disposition home or self-care (01) ==
LOC: RADUSWWP 07:26
PROVIDERS: ATTEND Internal Medicine
DX: I71.4 Abdominal aortic aneurysm, without rupture (principal)
CPT/HCPCS: 93979

== ENCOUNTER → 2021-11-24 | Outpatient (CLI) | payer MEDICARE ==
--- NOTE | 2021-11-24 21:43 | CT ---
EXAMINATION TYPE: CT angio abdomen pelvis DATE OF EXAM: 11/24/2021 COMPARISON: 10/19/2021 ultrasound INDICATION: AAA DLP: 1032.3 mGycm, Automated exposure control for dose reduction was used. CONTRAST: 100 mL of Isovue 370. Study performed without Oral Contrast TECHNIQUE: Axial images were obtained from above the diaphragm to the pubic rami in the axial plane a t 5 mm thick sections. Reconstructed images are reviewed on the computer in the coronal plane. FINDINGS: Limited CT sections are obtained the lung bases. The lung bases are clear. CT ABDOMEN: Liver: There appears to be moderate fatty infiltration of the liver in this arterial phase. Spleen: Normal Pancreas: Normal Adrenal glands: The adrenal glands are normal. Gallbladder: Normal Kidneys: No masses are evident. No hydronephrosis is present. No cysts are present. Aorta: There is an abdominal aortic aneurysm with an AP diameter of 5.2 cm in transverse dimension of 4.7 cm. This begins below the level of the renal arteries and terminates at the bifurcation. Common iliac vessels appear normal. Internal and external iliac vessels are patent. Common femoral arteries appear normal. Inferior vena cava: Normal. CT PELVIS: Loops of bowel within the abdomen and pelvis are normal. The study is without oral contrast limit ing bowel evaluation Appendix: Normal as visualized. Urinary bladder: Normal. Genitourinary structures: Uterus is normal. Adnexal regions are normal Osseous structures: No suspicious lytic or sclerotic lesions. IMPRESSIONS: 1. Abdominal aortic aneurysm with an AP dimension 5.2 cm beginning below the renal arteries and term inating at the bifurcation.
== END | disposition home or self-care (01) ==
LOC: RADCTMAIN 14:10
PROVIDERS: ATTEND Surgery
DX: I71.4 Abdominal aortic aneurysm, without rupture (principal)
CPT/HCPCS: 82565; 84520; 36415; 74174; Q9967

== ENCOUNTER → 2021-12-13 | Outpatient (CLI) | payer MEDICARE ==
[2021-12-13 14:39] LABS: Basophils # (A) 0.06 X 10*3/uL (0.00-0.10); Basophils % (A) 0.9 %; Eosinophils # (A) 0.26 X 10*3/uL (0.04-0.35); Eosinophils % (A) 3.8 %; HCT 35.1 % (37.2-46.3); HGB 11.6 g/dL (12.0-15.0); Immature Grans, Automated 0.4 %; Lymphocytes # (A) 1.57 X 10*3/uL (0.90-5.00); Lymphocytes % (A) 22.7 %; MCH 33.2 pg (27.0-32.0); MCV 100.6 fL (80.0-97.0); Mean Platelet Volume 9.5 fL (9.5-12.2); Monocytes # (A) 0.59 X 10*3/uL (0.20-1.00); Monocytes % (A) 8.5 %; NRBC Per 100 WBC 0 /100 WBCS (0.0-0.0); Neutrophils # (A) 4.42 X 10*3/uL (1.80-7.70); Neutrophils % (A) 63.7 %; Platelet Count 287 X 10*3/uL (140-440); RBC 3.49 X 10*6/uL (4.10-5.20); WBC 6.93 X 10*3/uL (4.50-10.00)
[2021-12-13 15:02] LABS: African American GFR (CKD) 95.6 (60.0-200.0); Anion Gap 11.3 mmol/L (10.00-18.00); Blood Urea Nitrogen 12.8 mg/dL (9.0-27.0); Carbon Dioxide 26.4 mmol/L (20.0-27.5); Non-African American GFR(CKD) 82.5 (60.0-200.0); Potassium 3.6 mmol/L (3.5-5.5)
== END | disposition home or self-care (01) ==
LOC: LABPAT 08:32
PROVIDERS: ATTEND Surgery
DX: Z01.812 Encounter for preprocedural laboratory examination (principal); I71.4 Abdominal aortic aneurysm, without rupture
CPT/HCPCS: 80051; 82565; 84520; 85025

== ENCOUNTER → 2022-01-05 | Outpatient (CLI) | payer MEDICARE ==
--- NOTE | 2022-01-05 11:14 | P.PN ---
Subjective DATE: 01/05/2022 FOLLOW UP VISIT. Patient with obstructive sleep apnea hypopnea syndrome return to sleep center for follow-up visit. Information from previous visit have been reviewed. Patient is using BIPAP equipment every night for the whole night, getting PAP supplies in time. Patient received nasal pillow mask francisco effects, but she doesn't know how to connect mask too sure BiPAP unit. [place] sleepiness scale is 15. I checked BIPAP unit. BIPAP unit pressure maximal inspiratory pressure of 15, minimal expiratory pressure 6, pressure support for, average pressure of 14.7 over 10.7 cm H2O. Usage is 90 % for more then 4 hours, average 5.6 hours per night. Leak is 35 l/m, which is in increased range. Apnea Hypopnea Index is 4.4, which is normal. MEDICATIONS:1. Verapamil 180 mg once a day 2. Atorvastatin 20 mg once a day 3. Metoprolol 100 mg once a day 4. Eliquis 5 mg once a day 5. Fluticasone 6. Losartan 100 mg once a day 7. []fexofenadine 180 mg once a day 8. Triamterene/ hydrochlorothiazide 37.5/25 mg once a day During physical exam: GENERAL: A pleasant patient without any distress. VITAL SIGNS: BP 129/73, HR 94, RR 16 , weight 168, temperature 98.4, oxygen saturation at room air 98 % . HEENT: PERRLA, EOMI.low position of soft palate. NECK: Supple. No JVD. LUNGS: Clear to percussion and to auscultation. Good air exchange. No wheezing or rhonchi. HEART: S1, S2 regular. ABDOMEN: Soft and nontender.[] EXTREMITIES: No clubbing or cyanosis. SALES AGENT: Awake, alert, and oriented x3. No focal deficit. I teached patient how to connect nasal pillow mask to her BiPAP machine and she tried to use it in the office. Impressions: 1. Obstructive sleep apnea-hypopnea syndrome. Patient demonstrated great compliance with treatment, benefiting from treatment. 2. Atrial fibrillation. 3. Hypertension. 4. Hyperlipidemia. 5. Mild obesity. 6. History of asthma and COPD. 7. ALLERGIES. 8. History of abdominal aortic aneurysm. Plan: 1. Continue using PAP equipment every night for the whole night. 2. To change air filter at least 1-2 times per month. 3. PAP unit should stay lower then position of the head. 4. Advised patient to remove all remaining water from humidifier canister daily and make it dry after each usage. Refill canister with fresh distilled water before each usage. 5. Sleep hygiene with regular time in bed for at least 8 hours. 6. Precautions related to driving. No driving if feel any sleepiness. 7. I will maintain prescription for PAP supplies including mask, tube, filters. 8. Follow up visit in 6 months or earlier if patient has any problems. 9. Watching weight. Thank you very much for allowing me to participate in the management of your patient. Ryan Rosales MD, PhD, FAASM. Diplomat of [place] [employer], Sleep Medicine Board by [place] [employer] Poolroom Table Attendant of [facility]
== END | disposition home or self-care (01) ==
LOC: SLEEP 09:57
PROVIDERS: ATTEND Internal Medicine
DX: G47.33 Obstructive sleep apnea (adult) (pediatric) (principal); I48.91 Unspecified atrial fibrillation; I10 Essential (primary) hypertension; E78.5 Hyperlipidemia, unspecified; E66.01 Morbid (severe) obesity due to excess calories; T78.40XA Allergy, unspecified, initial encounter; Z87.09 Personal history of other diseases of the respiratory system; Z86.79 Personal history of other diseases of the circulatory system
CPT/HCPCS: 99212

== ENCOUNTER → 2022-01-20 | Outpatient (CLI) | payer MEDICARE ==
[2022-01-20 10:56] LABS: African American GFR (CKD) >90 (>60 ml/min/1.73 sqM); Blood Urea Nitrogen 9 mg/dL (7-17); Non-African American GFR(CKD) 88 (>60 ml/min/1.73 sqM)
--- NOTE | 2022-01-20 14:38 | CT ---
EXAMINATION TYPE: CT angio abdomen pelvis DATE OF EXAM: 01/20/2022 COMPARISON: 11/24/2021 HISTORY: Abdominal aortic aneurysm, without rupture, repaired CT DLP: 1546.6 mGycm CONTRAST: CTA thoracic and abdominal aorta with 3-D reconstruction is performed with Oral Contrast and without and with IV Contrast, patient injected with 100 mL of Isovue 370. Contrast CTA of the abdominal aorta was performed from the lung bases through the base of the pelvis. 3-D reconstruction imaging obtained at a separate workstation. CONTRAST CT ABDOMEN AND PELVIS ABDOMINAL AORTA: Infrarenal abdominal aortic aneurysm with [place] aneurysm measuring 4.8 cm AP dimens ion. Aortobiiliac stent graft is in place. There is no evidence for endoleak. Aneurysm remains stable . Branch vessels are patent. LIVER/GB- No significant abnormality is seen. PANCREAS- No significant abnormality is seen. SPLEEN- No significant abnormality is seen. ADRENALS- No significant abnormality is seen. KIDNEYS/BLADDER- No significant abnormality is seen. BOWEL- No Significant abnormality GENITAL ORGANS: No gross abnormality seen. LYMPH NODES- No greater than 1cm abdominal or pelvic lymph nodes are appreciated. OSSEOUS STRUCTURES- No significant abnormality is seen. OTHER- No significant abnormality is seen. IMPRESSION- 1. Interval placement of aortic stent graft without evidence for endoleak. Stable [place] aneurysm
== END | disposition home or self-care (01) ==
LOC: RADCTMAIN 10:24
PROVIDERS: ATTEND Surgery
DX: I71.4 Abdominal aortic aneurysm, without rupture (principal)
CPT/HCPCS: 82565; 84520; 36415; 74174; Q9967

== ENCOUNTER → 2022-05-23 | Outpatient (CLI) | payer MEDICARE ==
--- NOTE | 2022-05-23 15:19 | CT ---
EXAMINATION TYPE: CT chest wo con DATE OF EXAM: 05/23/2022 COMPARISON: 06/21/2021 HISTORY: restrictive lung disease. COPD CT DLP: [address] of the chest was performed with lung and mediastinal window settings submitted. The la ck of contrast limits evaluation of the vascular, mediastinal and parenchymal structures including th e upper abdomen. LUNGS: Moderate centrilobular emphysema greatest within the upper lungs is redemonstrated. The lungs are clear and free of infiltrate. No atelectasis. No pulmonary nodule or mass is detected. No pleur al effusion. No CT evidence of interstitial lung disease. MEDIASTINUM/TRIPP: Thoracic aorta is of normal caliber with limited evaluation given lack of contrast . The heart is not enlarged. No evidence for mediastinal mass. No lymph nodes greater than 1cm. UPPER ABDOMEN: No significant abnormality is seen. OTHER: No significant other abnormality. IMPRESSION: 1. Stable emphysematous changes.
== END | disposition home or self-care (01) ==
LOC: RADCTMAIN 13:31
PROVIDERS: ATTEND Internal Medicine
DX: J43.2 Centrilobular emphysema (principal); J98.4 Other disorders of lung
CPT/HCPCS: 36415; 71250; 82565; 84520

== ENCOUNTER → 2022-07-26 | Outpatient (CLI) | payer MEDICARE ==
--- NOTE | 2022-07-26 10:50 | P.PN ---
Subjective DATE: 07/26/2022 FOLLOW UP VISIT. Patient with obstructive sleep apnea hypopnea syndrome return to sleep center for follow-up visit. Information from previous visit have been reviewed. Patient is using PAP equipment every night for the whole night, getting PAP supplies in time. The patient does not have significant problems with the mask, PAP unit and humidification. [place] sleepiness scale is 11, which is slightly increased. I checked information from PAP unit. PAP unit pressure maximal inspiratory pressure 15, minimal expiratory pressure 6, average pressure 14. 9/11 cm H2O. Usage is 100 % for more then 4 hours, average 5.9 hours per night. Leak is 24 l/m, which is in acceptable range. Apnea Hypopnea Index is 4.9, which is normal. MEDICATIONS:1. verapamil 180 mg once a day 2. Atorvastatin 20 mg once a day 3. Metoprolol 100 mg once a day 4. Fluticasone 5. Losartan 100 mg once a day 6. Triamterene/hydrochlorothiazide 37.5/25 mg once a day 7. Eliquis 5 mg once a day During physical exam: GENERAL: A pleasant patient without any distress. VITAL SIGNS: BP 130/78, HR 59, RR 18, weight 172.6, temperature 97.5, oxygen saturation at room air 98 % . HEENT: PERRLA, EOMI.low position of soft palate, [place] 3. NECK: Supple. No JVD. LUNGS: Clear to percussion and to auscultation. Good air exchange. No wheezing or rhonchi. HEART: S1, S2 regular. ABDOMEN: Soft and nontender.[] EXTREMITIES: No clubbing or cyanosis. AVID EDITOR: Awake, alert, and oriented x3. No focal deficit. Impressions: 1. Obstructive sleep apnea-hypopnea syndrome. Patient demonstrated great compliance with treatment, benefiting from treatment. 2. History of atrial fibrillation. 3. Hypertension. 4. Hyperlipidemia. 5. History of asthma and COPD. 6. Mild obesity. 7. History of abdominal aortic aneurysm. 8. ALLERGIES. Plan: 1. Continue using PAP equipment every night for the whole night. 2. To change air filter at least 1-2 times per month. 3. PAP unit should stay lower then position of the head. 4. Advised patient to remove all remaining water from humidifier canister daily and make it dry after each usage. Refill canister with fresh distilled water before each usage. 5. Sleep hygiene with regular time in bed for at least 8 hours. 6. Precautions related to driving. No driving if feel any sleepiness. 7. I will maintain prescription for PAP supplies including mask, tube, filters. 8. Watching weight. 9. Follow up visit in 6 months or earlier if patient has any problems. Thank you very much for allowing me to participate in the management of your patient. Ryan Rosales MD, PhD, FAASM. Diplomat of [place] [employer], Sleep Medicine Board by [place] [employer] Pumper Gauger of [facility]
== END ==
LOC: SLEEP 09:56
PROVIDERS: ATTEND Internal Medicine
DX: G47.33 Obstructive sleep apnea (adult) (pediatric) (principal); I48.91 Unspecified atrial fibrillation; E78.5 Hyperlipidemia, unspecified; I10 Essential (primary) hypertension; F17.210 Nicotine dependence, cigarettes, uncomplicated; J44.9 Chronic obstructive pulmonary disease, unspecified; E66.9 Obesity, unspecified; Z99.89 Dependence on other enabling machines and devices; Z88.0 Allergy status to penicillin; Z88.1 Allergy status to other antibiotic agents; Z91.048 Other nonmedicinal substance allergy status
CPT/HCPCS: 99212

== ENCOUNTER → 2022-11-30 | Outpatient (CLI) | payer MEDICARE ==
--- NOTE | 2022-11-30 11:27 | BD ---
EXAMINATION TYPE: Axial Bone Density DATE OF EXAM: 11/30/2022 CLINICAL HISTORY: 72 years old Female. ICD-10 CODE: Z78.0 ASYMPTOMATIC MENOPAUSE Height: 5 ft 2 in Weight: 172 FRAX RISK QUESTIONS: Alcohol (3 or more units per day): no Family History (Parent hip fracture): yes Glucocorticoids (More than 3mos): no (Ex: prednisone, prednisolone, methylprednisolone, dexamethasone, and hydrocortisone). History of Fracture in Adulthood: no Secondary Osteoporosis: 1. Type 1 Diabetes: no 2. Hyperthyroidism: no 3. Menopause before 45: no 4. Malnutrition: no 5. Chronic liver disease: no Rheumatoid Arthritis: no Current Tobacco Use: yes RISK FACTORS HISTORY OF: Surgery to Spine/Hip(right/left)/Wrist (right/left): no Family History of Osteoporosis: yes Active: no Diet low in dairy products/other sources of calcium: no Postmenopausal woman: yes Take estrogen and/or progesterone medications: none now Lost more than 2 inches in height since high school: no Frequent falls: no Poor Health: good Hyperparathyroidism: no Adrenal Insufficiency: no MEDICATIONS: Additional Medications: fexofenadine, fluticasone, vit d, inhaler, losartan, metoprolol, triamterene, verapamil, atorvastatin, eliquis Additional History: asthma,copd EXAM MEASUREMENTS: Bone mineral densitometry was performed using the GoAlbert System. Bone mineral density as measured about the Lumbar spine is: ----- L1-L4(G/cm2): 1.013 T Score Values are as follows: ----- L1: -1.1 ----- L2: -1.5 ----- L3: -1.3 ----- L4: -1.7 ----- L1-L4: -1.4 Z Score Values are as follows: ----- L1: 0.2 ----- L2: -0.3 ----- L3: -0.1 ----- L4: -0.4 ----- L1-L4: -0.1 Bone mineral density has: decreased -4.3 % since study of: 2020 Bone mineral density about the R hip (g/cm2): 0.742 Bone mineral density about the L hip (g/cm2): 0.770 T Score values are as follows: -----R Neck: -2.1 -----L Neck: -1.9 -----R Total: -2.1 -----L Total: -1.1 Z Score values are as follows: -----R Neck: -0.6 -----L Neck: -0.4 -----R Total: -0.9 -----L Total: 0.2 Bone mineral density has: decreased -4.5 % since study of: 2020 FRAX%s: The graph provided illustrates a 24.0 % chance for a major osteoporotic fx and a 13.3 % chanc e for the hips probability for fx in 10 years time. IMPRESSION: Osteopenia (T Score between -2.5 and -1). There is slightly increased risk of fracture and the patient may be considered for treatment. Re-Screen 2-5 years. NOTE: T-SCORE=SD OF THE YOUNG ADULT MEAN.
--- NOTE | 2022-12-01 20:27 | MM ---
Reason for Exam: Screening (asymptomatic). Last mammogram was performed 1 year(s) and 2 month(s) ago. Patient History: Menarche at age 13. Patient has no children. Postmenopausal. Estrogen for 6 years from age 44 until age 50. Progesterone for 6 years from age 44 until age 50. Maternal aunt had breast cancer, age 50. Maternal aunt had breast cancer, age 70. Risk Values: Fe 5 year model risk: 2.0%. NCI Lifetime model risk: 5.1%. Prior Study Comparison: 03/28/2019 Bilateral Screening Mammogram, [facility]. 08/10/2020 Bilateral Screening Mammogram, [facility]. 10/05/2021 Bilateral MG 3D screening mammo w/cad, [facility]. Tissue Density: The breast tissue is heterogeneously dense. This may lower the sensitivity of mammography. Findings: Analyzed By CAD. Chronic nodularity upper outer right breast. There is no suspicious group of microcalcifications or new suspicious mass in either breast. Overall Assessment: Benign, BI-RAD 2 Management: Screening Mammogram of both breasts in 1 year. . Patient should continue monthly self-breast exams. A clinical breast exam by your physician is recommended on an annual basis. This exam should not preclude additional follow-up of suspicious palpable abnormalities. Note on Fe scores and lifetime risk: 1. A Fe score greater than 3% is considered moderate risk. If this is the case, consider specialist referral to assess eligibility for a risk reducing agent. 2. If overall lifetime risk for the development of breast cancer is 20% or higher, the patient may qualify for future screening with alternating mammogram and breast MRI. Electronically signed and approved by: Pamela Chavez M.D. Radiologist
== END | disposition home or self-care (01) ==
LOC: RADMAMWWP 10:10
PROVIDERS: ATTEND Family Medicine
DX: Z12.31 Encounter for screening mammogram for malignant neoplasm of breast (principal); M85.89 Other specified disorders of bone density and structure, multiple sites; Z78.0 Asymptomatic menopausal state; Z80.3 Family history of malignant neoplasm of breast
CPT/HCPCS: 77063; 77067; 77080

== ENCOUNTER → 2023-02-28 | Outpatient (CLI) | payer MEDICARE ==
--- NOTE | 2023-02-28 10:34 | P.PN ---
Subjective DATE: 02/28/2023 FOLLOW UP VISIT. Patient with obstructive sleep apnea hypopnea syndrome return to sleep center for follow-up visit. Information from previous visit have been reviewed. Patient is using PAP equipment every night for the whole night, getting PAP supplies in time. The patient does not have significant problems with the mask, PAP unit and humidification. [place] sleepiness scale is increased to 14. I checked information from BPAP unit. BPAP unit pressure she [place] inspiratory pressure 15, minimal expiratory pressure 6, pressure-support 4, average pressure 14.6 over 10.6 cm H2O. Usage is 100 % for more then 4 hours, average 6.3 hours per night. Leak is 22 l/m, which is in acceptable range. Apnea Hypopnea Index is 3.8, which is normal. MEDICATIONS:1. Losartan 100 mg once a day 2. Metoprolol 100 mg once a day 3. Verapamil 180 mg once a day 4. Atorvastatin 20 mg once a day 5. Eliquis 5 mg twice a day 6. Fluticasone spray 7. Fexofenadine 180 mg once a day as needed for ALLERGIES 8. Triamterene/hydrochlorothiazide 37.5-25 mg once a day During physical exam: GENERAL: A pleasant patient without any distress. VITAL SIGNS: BP 128/77, HR 65, RR 20 , weight 174.4, temperature 98.3, oxygen saturation at room air 99 % . HEENT: PERRLA, EOMI.low position of soft palate, Mallapati 3 . NECK: Supple. No JVD. LUNGS: Clear to percussion and to auscultation. Good air exchange. No wheezing or rhonchi. HEART: S1, S2 regular. ABDOMEN: Soft and nontender. Slightly obese EXTREMITIES: No clubbing or cyanosis. FREEZER OPERATOR: Awake, alert, and oriented x3. No focal deficit. Impressions: 1. Obstructive sleep apnea-hypopnea syndrome. Patient demonstrated great compliance with treatment, benefiting from treatment. 2. History of atrial fibrillation. 3. Hypertension. 4. Asthma and COPD. 5. Hyperlipidemia. 6. Mild obesity. 7. History of abdominal aortic aneurysm. 8. ALLERGIES. Plan: 1. Continue using PAP equipment every night for the whole night. 2. To change air filter at least 1-2 times per month. 3. PAP unit should stay lower then position of the head. 4. Advised patient to remove all remaining water from humidifier canister daily and make it dry after each usage. Refill canister with fresh distilled water before each usage. 5. Sleep hygiene with regular time in bed for at least 8 hours. 6. Precautions related to driving. No driving if feel any sleepiness. 7. I will maintain prescription for PAP supplies including mask, tube, filters. 8. Follow up visit in 6 months or earlier if patient has any problems. 9. Watching and losing weight. Thank you very much for allowing me to participate in the management of your patient. Ryan Rosales MD, PhD, FAASM. Diplomat of [place] [employer], Sleep Medicine Board by [place] [employer] Drywall Hanger Helper of [facility] [place]
== END ==
LOC: 3 N SLEEP 10:13
PROVIDERS: ATTEND Internal Medicine
DX: G47.33 Obstructive sleep apnea (adult) (pediatric) (principal); I48.91 Unspecified atrial fibrillation; I10 Essential (primary) hypertension; J44.89 Other specified chronic obstructive pulmonary disease; E66.9 Obesity, unspecified; E78.5 Hyperlipidemia, unspecified; F17.200 Nicotine dependence, unspecified, uncomplicated; Z79.01 Long term (current) use of anticoagulants; Z79.899 Other long term (current) drug therapy; Z86.79 Personal history of other diseases of the circulatory system; Z99.89 Dependence on other enabling machines and devices; Z88.0 Allergy status to penicillin; Z91.09 Other allergy status, other than to drugs and biological substances; Z88.1 Allergy status to other antibiotic agents
CPT/HCPCS: 99212

== ENCOUNTER 2023-03-17 06:20 | Emergency (ER) | payer MEDICARE ==
[2023-03-17 06:53] VITALS: TEMP 96.9
--- NOTE | 2023-03-17 07:00 | ED ---
Recheck HPI - General Chief Complaint: Urogenital Stated Complaint: Post-Op Complications Time Seen by Provider: 03/17/23 06:34 Source: patient, RN notes reviewed Mode of arrival: ambulatory Limitations: no limitations - History of Present Illness Initial Comments: This is a 72-year-old female who presents to the emergency department for postoperative problems. On 03/12 she had bilateral sentinal lymph node mapping and inguinalfemoral lymph node dissection with Dr. Camp. The patient had recently been diagnosed with vulvar cancer and this was done to evaluate for signs of mets. States that the left CHAPITO drain fell out in her sleep. When she woke up she noticed that the drain was no longer in place. Denies any pain associated with this. States that this was not supposed to be removed until 03/26. There was still active drainage before it had fallen out. MD Complaint: other (Postoperative problem) - Related Data Home Medications Medication Instructions Recorded Confirmed Atorvastatin [Lipitor] 20 mg PO HS 06/30/14 12/22/21 Apixaban [Eliquis] 5 mg PO BID 12/13/17 12/21/21 Cholecalciferol (Vitamin D3) 2,000 unit PO DAILY 12/13/17 12/22/21 [Vitamin D3] Triamterene-Hctz 37.5-25Mg 1 cap PO DAILY 04/24/18 12/22/21 [Dyazide 37.5-25 Capsule] Fexofenadine HCl 180 mg PO DAILY 09/13/21 12/22/21 Fluticasone Nasal [place] [Flonase 1 spray EA NOSTRIL DAILY 12/21/21 12/22/21 Nasal [place]] Losartan Potassium [Cozaar] 100 mg PO DAILY 12/21/21 12/22/21 Metoprolol Succinate (ER) [Toprol 100 mg PO DAILY 12/21/21 12/22/21 XL] Verapamil HCl [Verapamil ER] 180 mg PO HS 12/21/21 12/22/21 Wizela Inhaler 1 applicate IH BID 12/21/21 12/22/21 Previous Rx's Medication Instructions Recorded Aspirin 81 mg PO DAILY tab 12/23/21 HYDROcodone/APAP 7.5-325MG [[place] 1 each PO Q6HR PRN #5 tab 12/23/21 7.5-325] Allergies Allergy/AdvReac Type Severity Reaction Status Date / Time amoxicillin [From Augmentin] Allergy Nausea & Verified 03/17/23 06:32 Vomiting & Diarrhea clavulanic acid Allergy Nausea & Verified 03/17/23 06:32 [From Augmentin] Vomiting & Diarrhea mold Allergy Unknown Verified 03/17/23 06:32 Review of Systems ROS Statement: Those systems with pertinent positive or pertinent negative responses have been documented in the HPI. ROS Other: All systems not noted in ROS Statement are negative. Past Medical History Past Medical History: Atrial Fibrillation, Asthma, COPD, Hyperlipidemia, Hypertension, Sleep Apnea/CPAP/BIPAP Additional Past Medical History / Comment(s): Heart murmur. AAA. RECURRENT SINUS POLYPS. ENVIRONMENTAL ALLERGIES. PAST CUTTER V GROOVE HISTORY: She has no history of STDs. SHELIA III 2018. History of Any Multi-Drug Resistant Organisms: None Reported Past Surgical History: Appendectomy, Ear Surgery Additional Past Surgical History / Comment(s): Nasal polyps x 3. BMT. Salpingectomy (one). Vulvar sx for SHELIA III (excision 2018 and laser Sx 2019). Bilateral sentinel lymph node mapping and inguinofemoral lymph node disection. Past Anesthesia/Blood Transfusion Reactions: Previous Problems w/ Anesthesia, Postoperative Nausea & Vomiting (PONV) Additional Past Anesthesia/Blood Transfusion Reaction / Comment(s): "FELL ILL FOR 1 WK" X1 OR. Past Psychological History: No Psychological Hx Reported Smoking Status: Current every day smoker Past Alcohol Use History: Occasional Past Drug Use History: None Reported - Past Family History Father Family Medical History: Myocardial Infarction (IN) Mother Family Medical History: Cancer Additional Family Medical History / Comment(s): Widespread cancer of uncertain primary. General Exam Limitations: no limitations General appearance: alert, in no apparent distress Head exam: Present: atraumatic, normocephalic, normal inspection Respiratory exam: Present: normal lung sounds bilaterally. Absent: respiratory distress, wheezes, rales, rhonchi, stridor Cardiovascular Exam: Present: regular rate, normal rhythm, normal heart sounds. Absent: systolic murmur, diastolic murmur, rubs, gallop, clicks GI/Abdominal exam: Present: other (Lower abdominal incision is intact and well healing without any surrounding erythema, swelling, tenderness, or drainage.) Neurological exam: Present: alert, oriented X3, CN II-XII intact Psychiatric exam: Present: normal affect, normal mood Course Vital Signs 03/17/23 06:27 Temperature 96.9 F L Pulse Rate 53 L Respiratory 18 Rate Blood Pressure 176/81 O2 Sat by Pulse 96 Oximetry Medical Decision Making - Medical Decision Making This is a 72-year-old female who presents to the emergency department for problems with her left CHAPITO drain coming out. Was pt. sent in by a medical professional or institution? @ -No Did you speak to anyone other than the patient for history? @ -No Did you review nursing and triage notes? @ -Yes, and I agree, it is accurate with regards to the patient's symptoms. Were old charts reviewed? @ -No Differential Diagnosis? @ -Not applicable EKG interpreted by me (3pts min.)? @ -Not obtained X-rays interpreted by me (1pt min.)? @ -Not obtained CT interpreted by me (1pt min.)? @ -Not obtained U/S interpreted by me (1pt. min.)? @ -Not obtained What testing was considered but not performed? (CT, X-rays, U/S, labs)? Why? @ -None What meds were considered but not given? Why? @ -None Did you discuss the management of the patient with other professionals? @ -Yes, Dr. Camp, WAX PUMPER, who performed the patient's procedure. She advised that the drain was deep underneath the fascia and this was nothing that they would replace at this time, and she should call the office on Sunday. Did you reconcile home meds? @ -No Was smoking cessation discussed for >3mins.? @ -No Was critical care preformed (if so, how long)? @ -No Were there social determinants of health that impacted care today? How? (Homelessness, low income, unemployed, alcoholism, drug addiction, transportation, low edu. Level, literacy, decrease access to med. care, long-term, rehab)? @ -No Was there de-escalation of care discussed even if they declined? (Discuss DNR or withdrawal of care, Hospice)? @ -No What co-morbidities impacted this encounter? (DM, HTN, Smoking, COPD, CAD, Cancer, CVA, Hep., AIDS, mental health diagnosis, sleep apnea, morbid obesity)? @ -Vulvar cancer Was patient admitted / discharged? @ -Discharged. Physical examination revealed that the incision was clean, dry, and intact. The loose suture that was used to hold the CHAPITO drain was still present, however there was no evidence of any residual CHAPITO drain pieces or components. I spoke with her surgeon, Dr. Camp, WAX PUMPER, at [facility]. She advised that the drain was deeper underneath the fascia and is not something that she could go and replace at this time. She advised that the patient should continue to monitor this area and have her call the office on Sunday for a follow-up appointment. This was discussed with the patient who expresses understanding and she was discharged home in stable condition. Undiagnosed new problem with uncertain prognosis? @ -None Drug Therapy requiring intensive monitoring for toxicity (Heparin, Nitro, Insulin, Cardizem)? @ -None Were any procedures done? @ -None Diagnosis/symptom? @ -S/p lymph node dissection, postop complication Acute, or Chronic, or Acute on Chronic? @ -Acute Uncomplicated (without systemic symptoms) or Complicated (systemic symptoms)? @ -Uncomplicated Side effects of treatment? @ -None Exacerbation, Progression, or Severe Exacerbation] @ -Not applicable Poses a threat to life or bodily function? @ -Unlikely Return precautions reviewed in depth, the patient is instructed to return to the emergency department with any new, worsening, or concerning symptoms. Patient verbalized understanding. This case was discussed in detail with the attending ED physician, Dr. Bruner. Presentation, findings, and treatment plan discussed in detail as well. Disposition Clinical Impression: Status post lymph node biopsy, Postoperative complication Disposition: HOME SELF-CARE Additional Instructions: Return to the emergency department with any new, worsening, or concerning symptoms. Call Dr. Camp on Sunday to schedule a follow up appointment. Is patient prescribed a controlled substance at d/c from ED?: No Referrals: Jonathan Conner MD [Primary Care Provider] - 1-2 days
[2023-03-17 07:45] VITALS: BP 162/72; PULSE 85; RESP 20
== END 2023-03-17 07:28 | disposition home or self-care (01) ==
LOC: EC 06:20
DX: T88.9XXA Complication of surgical and medical care, unspecified, initial encounter (principal); Z90.12 Acquired absence of left breast and nipple; J44.89 Other specified chronic obstructive pulmonary disease; E78.5 Hyperlipidemia, unspecified; I10 Essential (primary) hypertension; I48.91 Unspecified atrial fibrillation; G47.30 Sleep apnea, unspecified; F17.200 Nicotine dependence, unspecified, uncomplicated; Z88.0 Allergy status to penicillin; Z88.8 Allergy status to other drugs, medicaments and biological substances
CPT/HCPCS: 99283

== ENCOUNTER → 2023-09-27 | Outpatient (CLI) | payer MEDICARE ==
--- NOTE | 2023-09-27 11:07 | P.PROGSL ---
Subjective DATE: 09/27/2023 FOLLOW UP VISIT. Patient with obstructive sleep apnea hypopnea syndrome return to sleep center for follow-up visit. Information from previous visit have been reviewed. Patient is using BPAP equipment every night for the whole night, getting PAP supplies in time. The patient does not have significant problems with the mask, BPAP unit and humidification. [place] sleepiness scale is increased to 13. I checked information from BPAP unit. BPAP unit pressure maximal inspiratory pressure 15, minimal expiratory pressure 6, pressure support 4 cm H2O. Usage is 96% for more then 4 hours, average 5.2 hours per night. Leak is increased to 35 l/m. Apnea Hypopnea Index is increased to 9.1, during previous visit it was 3.8. MEDICATIONS: Please see below During physical exam: GENERAL: A pleasant patient without any distress. VITAL SIGNS: Please see below, weight 178.8 pounds HEENT: PERRLA, EOMI.low position of soft palate, Mallapati 3 . NECK: Supple. No JVD. LUNGS: Clear to percussion and to auscultation. Good air exchange. No wheezing or rhonchi. HEART: S1, S2 regular. ABDOMEN: Soft and nontender.[] EXTREMITIES: No clubbing or cyanosis. 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 No focal deficit. Impressions: 1. Obstructive sleep apnea-hypopnea syndrome. Patient demonstrated great compliance with treatment, benefiting from treatment. AHI increased comparing with previous visit possibly secondary to increased leak and increasing weight. 2. Obesity, BMI 34.1, patient increased weight on 4 pounds comparing with previous visit. 3. History of atrial fibrillation. 4. Asthma and COPD. 5. Hypertension. 6. Hyperlipidemia. 7. History of abdominal aortic aneurysm. 8. Allergies. Plan: 1. Continue using BPAP equipment every night for the whole night. I increased maximal inspiratory pressure level to 16 cm of water. Patient should replace mask. 2. To change air filter at least 1-2 times per month. 3. PAP unit should stay lower then position of the head. 4. Advised patient to remove all remaining water from humidifier canister daily and make it dry after each usage. Refill canister with fresh distilled water before each usage. 5. Sleep hygiene with regular time in bed for at least 8 hours. 6. Precautions related to driving. No driving if feel any sleepiness. 7. I will maintain prescription for PAP supplies including mask, tube, filters. 8. Watching and losing weight. 9. Follow up visit in 6 months or earlier if patient has any problems. Thank you very much for allowing me to participate in the management of your patient. Ryan Rosales MD, PhD, FAASM. Diplomat of [place] Board [employer] Sleep [employer], Sleep Medicine Board by [place] [employer] Wood [employer] Maker [facility] [place] Objective - Vital Signs Vital Signs: Vital Signs Temp 97.7 F 09/27/23 10:51 Pulse 59 L 09/27/23 10:51 Resp 18 09/27/23 10:51 BP 121/66 09/27/23 10:51 Pulse Ox 95 09/27/23 10:51 FiO2 Intake & Output 09/26/23 09/27/23 09/27/23 18:59 06:59 18:59 Weight 178.8 kg Home Medications: Home Medications Medication Instructions Recorded Confirmed Type Atorvastatin [Lipitor] 20 mg PO HS 06/30/14 09/27/23 History Apixaban [Eliquis] 5 mg PO BID 12/13/17 09/27/23 History Cholecalciferol (Vitamin D3) 1,000 unit PO DAILY 12/13/17 09/27/23 History [Vitamin D3] Triamterene-Hctz 37.5-25Mg 1 cap PO DAILY 04/24/18 09/27/23 History [Dyazide 37.5-25 Capsule] Fexofenadine HCl 180 mg PO DAILY 09/13/21 09/27/23 History Fluticasone Nasal [place] [Flonase 1 spray EA NOSTRIL DAILY 12/21/21 09/27/23 Hist ory Nasal [place]] Losartan Potassium [Cozaar] 100 mg PO DAILY 12/21/21 09/27/23 History Metoprolol Succinate (ER) [Toprol 100 mg PO DAILY 12/21/21 09/27/23 History XL] Verapamil HCl [Verapamil ER] 180 mg PO HS 12/21/21 09/27/23 History Wizela Inhaler 1 applicate IH BID 12/21/21 09/27/23 History Aspirin 81 mg PO DAILY tab 12/23/21 Rx HYDROcodone/APAP 7.5-325MG [[place] 1 each PO Q6HR PRN #5 tab 12/23/21 Rx 7.0-209]
[2023-09-27 11:27] VITALS: BP 121/66; PULSE 59; RESP 18; TEMP 97.7
== END ==
LOC: 3 N SLEEP 10:22
PROVIDERS: ATTEND Internal Medicine
DX: G47.33 Obstructive sleep apnea (adult) (pediatric) (principal); E66.9 Obesity, unspecified; I10 Essential (primary) hypertension; E78.5 Hyperlipidemia, unspecified; J44.89 Other specified chronic obstructive pulmonary disease; F17.200 Nicotine dependence, unspecified, uncomplicated; I48.91 Unspecified atrial fibrillation; Z79.01 Long term (current) use of anticoagulants; Z79.899 Other long term (current) drug therapy; Z99.89 Dependence on other enabling machines and devices; Z86.79 Personal history of other diseases of the circulatory system; Z68.34 Body mass index [BMI] 34.0-34.9, adult; Z88.0 Allergy status to penicillin; Z88.8 Allergy status to other drugs, medicaments and biological substances; Z91.09 Other allergy status, other than to drugs and biological substances; Z79.51 Long term (current) use of inhaled steroids
CPT/HCPCS: 99212

== ENCOUNTER → 2024-04-15 | Outpatient (CLI) | payer MEDICARE ==
--- NOTE | 2024-04-15 15:20 | MM ---
Reason for Exam: Screening (asymptomatic). Last mammogram was performed 1 year(s) and 4 month(s) ago. Patient History: Menarche at age 13. Patient has no children. Postmenopausal. Estrogen for 6 years from age 44 until age 50. Progesterone for 6 years from age 44 until age 50. Maternal aunt had breast cancer, age 50. Maternal aunt had breast cancer, age 70. Risk Values: Fe 5 year model risk: 2.0%. NCI Lifetime model risk: 4.8%. Prior Study Comparison: 08/10/2020 Bilateral Screening Mammogram, [facility]. 10/05/2021 Bilateral MG 3D screening mammo w/cad, [facility]. 11/30/2022 Bilateral MG 3D screening mammo w/cad, [facility]. Tissue Density: The breasts are heterogeneously dense, which may obscure small masses. Findings: Analyzed By CAD. There is no suspicious group of microcalcifications or new suspicious mass in either breast. Overall Assessment: Benign, BI-RAD 2 Management: Screening Mammogram of both breasts in 1 year. . Patient should continue monthly self-breast exams. A clinical breast exam by your physician is recommended on an annual basis. This exam should not preclude additional follow-up of suspicious palpable abnormalities. Note on Fe scores and lifetime risk: 1. A Fe score greater than 3% is considered moderate risk. If this is the case, consider specialist referral to assess eligibility for a risk reducing agent. 2. If overall lifetime risk for the development of breast cancer is 20% or higher, the patient may qualify for future screening with alternating mammogram and breast MRI. [facility], , 04/15/2024 3:17 PM. Electronically signed and approved by: Phill Mendez M.D. Radiologis
== END | disposition home or self-care (01) ==
LOC: RADMAMWWP 08:53
PROVIDERS: ATTEND Family Medicine
DX: Z12.31 Encounter for screening mammogram for malignant neoplasm of breast (principal); Z78.0 Asymptomatic menopausal state; Z80.3 Family history of malignant neoplasm of breast; R92.333 Mammographic heterogeneous density, bilateral breasts
CPT/HCPCS: 77063; 77067

== ENCOUNTER → 2024-05-29 | Outpatient (CLI) | payer MEDICARE ==
[2024-05-29 10:53] VITALS: BP 144/79; PULSE 64; RESP 16; TEMP 98
--- NOTE | 2024-05-29 11:20 | P.PROGSL ---
Subjective DATE: 05/29/2024 FOLLOW UP VISIT. Patient with obstructive sleep apnea hypopnea syndrome return to sleep center for follow-up visit. Information from previous visit have been reviewed. Patient is using PAP equipment every night for the whole night, getting PAP supplies in time. The patient does not have significant problems with the mask, PAP unit and humidification. [place] sleepiness scale is slightly increased to 11. I checked information from PAP unit. PAP unit pressure maximal inspiratory pressure 16, minimal expiratory pressure 6, pressure support 4, average pressure 15.6/11.6 cm H2O. Usage is 100% for more then 4 hours, average 5.4 hours per night. Leak is slightly increased to 30 l/m. Apnea Hypopnea Index is slightly increased to 8.2, but showed some improvements comparing with previous visit when pressure was increased. MEDICATIONS have been reviewed, please see below. During physical exam: GENERAL: A pleasant patient without any distress. VITAL SIGNS: Please see below, weight is 176 lbs. HEENT: PERRLA, EOMI.low position of soft palate, Mallapati 3. NECK: Supple. No JVD. LUNGS: Clear to percussion and to auscultation. Good air exchange. No wheezing or rhonchi. HEART: S1, S2 irregular. ABDOMEN: Soft and nontender.[] EXTREMITIES: No clubbing or cyanosis. CHIEF ENGINEER: Awake, alert, and oriented x3. No focal deficit. Impressions: 1. Obstructive sleep apnea-hypopnea syndrome. Patient demonstrated great compliance with treatment, benefiting from treatment. 2. Mild obesity, patient lost 2 pounds comparing with previous visit. 3. Asthma and COPD. 4. Atrial fibrillation. 5. Hypertension. 6. Hyperlipidemia. 7. Allergies. 8. Status post surgical treatment for abdominal aortic aneurysm. I slightly increased maximal inspiratory pressure to 17 cm of water. Plan: 1. Continue using PAP equipment every night for the whole night. 2. Sleep hygiene with regular time in bed for at least 7.5-8 hours 3. PAP unit should stay lower then position of the head. 4. Advised patient to remove all remaining water from humidifier canister daily and make it dry after each usage. Refill canister with fresh distilled water before each usage. 5. Watching weight. 6. Precautions related to driving. No driving if feel any sleepiness. 7. I will maintain prescription for PAP supplies including mask, tube, filters. 8. Follow up visit in 8 months or earlier if patient has any problems. Thank you very much for allowing me to participate in the management of your patient. Ryan Rosales MD, PhD, FAASM. Diplomat of [place] [employer], Sleep Medicine Board by [place] [employer] Sawmill Worker of [facility] [place] cc: Jonathan Conner MD Objective - Vital Signs Vital Signs: Vital Signs Temp 98 F 05/29/24 10:52 Pulse 64 05/29/24 10:52 Resp 16 05/29/24 10:52 BP 144/79 05/29/24 10:52 Pulse Ox 98 05/29/24 10:52 FiO2 Intake & Output 05/28/24 05/29/24 05/29/24 18:59 06:59 18:59 Weight 79.832 kg Home Medications: Home Medications Medication Instructions Recorded Confirmed Type Atorvastatin [Lipitor] 20 mg PO HS 06/30/14 05/29/24 History Apixaban [Eliquis] 5 mg PO BID 12/13/17 05/29/24 History Cholecalciferol (Vitamin D3) 1,000 unit PO DAILY 12/13/17 05/29/24 History [Vitamin D3] Triamterene-Hctz 37.5-25Mg 1 cap PO DAILY 04/24/18 05/29/24 History [Dyazide 37.5-25 Capsule] Fexofenadine HCl 180 mg PO DAILY 09/13/21 05/29/24 History Fluticasone Nasal [place] [Flonase 1 spray EA NOSTRIL DAILY 12/21/21 05/29/24 History Nasal [place]] Losartan Potassium [Cozaar] 100 mg PO DAILY 12/21/21 05/29/24 History Metoprolol Succinate (ER) [Toprol 100 mg PO DAILY 12/21/21 05/29/24 History XL] Verapamil HCl [Verapamil ER] 180 mg PO HS 12/21/21 05/29/24 History Wizela Inhaler 1 applicate IH BID 12/21/21 09/27/23 History Aspirin 81 mg PO DAILY tab 12/23/21 Rx HYDROcodone/APAP 7.5-325MG [[place] 1 each PO Q6HR PRN #5 tab 12/23/21 Rx 7.5-325]
== END ==
LOC: 3 N SLEEP 10:13
PROVIDERS: ATTEND Internal Medicine
DX: G47.33 Obstructive sleep apnea (adult) (pediatric) (principal); E66.9 Obesity, unspecified; J44.9 Chronic obstructive pulmonary disease, unspecified; J45.909 Unspecified asthma, uncomplicated; I48.91 Unspecified atrial fibrillation; I10 Essential (primary) hypertension; E78.5 Hyperlipidemia, unspecified; Z86.79 Personal history of other diseases of the circulatory system; F17.210 Nicotine dependence, cigarettes, uncomplicated; Z88.0 Allergy status to penicillin; Z88.1 Allergy status to other antibiotic agents; Z77.120 Contact with and (suspected) exposure to mold (toxic)
CPT/HCPCS: 99212

== ENCOUNTER → 2024-08-06 | Outpatient (CLI) | payer MEDICARE ==
--- NOTE | 2024-08-09 21:12 | CTL ---
EXAMINATION TYPE: CT Low Dose Lung DATE OF EXAM: 08/06/2024 9:32 AM COMPARISON: 05/23/2022 SCREENING VISIT: Subsequent CT DIAGNOSTIC QUALITY: Satisfactory CLINICAL INDICATION: Female, 73 years old with history of Z12.2 LUNG CA SCR F17.210 CURRENT SMOKER, C urrent smoker, 1/2 ppd x 50 years, hx COPD, Lung cancer screening, History of tobacco use. TECHNIQUE: Low dose computed tomography scan was performed through the chest at 1 mm thick sections a nd reconstructed images in the coronal plane at 1 mm thick sections. Contrast used: mL of , (none if empty) Oral contrast used: (none if empty) CT DLP: 79.30 mGycm, Automated exposure control for dose reduction was used. CT CTDI: 2.4 mGy, Automated exposure control for dose reduction was used. FINDINGS: LUNG NODULES: None. LUNGS: COPD: Severity: Mild Fibrosis: Severity: None Lymph nodes: There is a 1.0 cm lymph node in the pretracheal space. Other findings: None RIGHT PLEURAL SPACE: Effusion: None Calcification: None Thickening: None Pneumothorax: None LEFT PLEURAL SPACE: Effusion: None Calcification: None Thickening: None Pneumothorax: None HEART: Other: Ascending thoracic aorta at the level the main pulmonary artery measures 3.3 cm. The main pul monary artery at the bifurcation measures 3.0 cm. Heart Size: Normal Coronary calcification: Moderate coronary artery calcifications present. Pericardial effusion: None OTHER FINDINGS: Upper abdomen: Normal Bony thorax: Normal Supraclavicular region: Normal IMPRESSION: 1. No suspicious nodules or masses within the lung [place]. 2. There is a nonspecific 1.0 cm lymph node in the pretracheal space present previously FOLLOW UP CT CHEST RECOMMENDATION: Follow-up low-dose CT chest one year CT LUNG RAD: Lung-Rad 2 Benign Appearance or Behavior [facility], , 08/09/2024 9:09 PM
== END | disposition home or self-care (01) ==
LOC: RADCTMAIN 08:57
PROVIDERS: ATTEND Internal Medicine
DX: Z12.2 Encounter for screening for malignant neoplasm of respiratory organs (principal); F17.210 Nicotine dependence, cigarettes, uncomplicated; J44.9 Chronic obstructive pulmonary disease, unspecified
CPT/HCPCS: 71271

== ENCOUNTER → 2024-08-20 | Outpatient (CLI) | payer MEDICARE ==
[2024-08-20 09:51] LABS: African American GFR (CKD) 89 (>60 ml/min/1.73 sqM); Blood Urea Nitrogen 14 mg/dL (7-17); Non-African American GFR(CKD) 77 (>60 ml/min/1.73 sqM)
--- NOTE | 2024-08-20 14:13 | CT ---
EXAMINATION TYPE: CT angio abdomen pelvis CT DLP: 2167.80 mGycm, Automated exposure control for dose reduction was used. 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 Patient was given Isovue 370, 100 cc intravenously. 3-D r econstructed images and maximum intensity projection images were obtained of the abdomen, pelvis, and lower extremities. FINDINGS: CTA Abdomen and pelvis: Post surgical changes from aortobiiliac stent graft beginning at the hiatus. This is patent. The excluded [place] abdominal aneurysm sac measures 5.2 x 4.8 cm, previously 5.1 x 4. 8 cm. Atherosclerotic plaquing is identified within the abdominal aorta. There is evidence of endole ak with increased density identified within the excluded aneurysm sac on delayed imaging (series 11, image 37). The origins of the superior mesenteric artery, renal arteries, inferior mesenteric artery, and celiac axis are patent. Atherosclerotic plaquing of both common iliac arteries and the internal and external iliac arteries bilaterally. These are patent. There is atherosclerotic plaquing of the b ilateral visualized common femoral arteries which are patent. There is atherosclerotic plaquing with patency of the bilateral superficial and deep femoral arteries as visualized. VISCERA: The liver, spleen, adrenal glands, kidneys, pancreas, and gallbladder are not optimally enha nced due the arterial phase utilized. LIVER: Unremarkable GALLBLADDER AND BILE DUCTS: Unremarkable. PANCREAS: Unremarkable. SPLEEN: Unremarkable. ADRENAL GLANDS: Unremarkable. KIDNEYS AND URETERS: No evidence of hydronephrosis . No left renal calculus. Nonobstructive right thanh al 2 mm calculus. Left renal vascular calcifications. The kidneys enhance symmetrically. Contrast is demonstrated within both collecting systems on the delayed phase. PELVIS BLADDER: Unremarkable REPRODUCTIVE: Unremarkable. ABDOMEN & PELVIS STOMACH AND BOWEL: Stomach and duodenum are unremarkable. No focal bowel wall thickening or surroundi ng inflammatory changes. No evidence of bowel obstruction. PERITONEUM: No evidence of pneumoperitoneum or free fluid. MUSCULOSKELETAL: No acute osseous abnormalities. Mild dextrocurvature of the thoracolumbar spine. Mil d multilevel degenerative disc disease of the visualized spine. LYMPH NODES: No evidence for lymphadenopathy. SOFT TISSUE/ABDOMINAL WALL: Small fat filled umbilical hernia. LOWER CHEST: Cardiomegaly. Aortic valvular calcifications. Minimal mitral annulus calcifications. IMPRESSION Postsurgical changes from aortobiiliac stent graft. 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 [facility], , 08/20/2024 2:11 PM
== END | disposition home or self-care (01) ==
LOC: RADCTMAIN 09:06
PROVIDERS: ATTEND Surgery
DX: I71.43 Infrarenal abdominal aortic aneurysm, without rupture (principal); Z48.812 Encounter for surgical aftercare following surgery on the circulatory system
CPT/HCPCS: 82565; 84520; 74174; Q9967